=== PATIENT | female | born 1940 | race Caucasian/White ===

== ENCOUNTER 2020-05-27 18:10 | Inpatient (IN) | payer MEDICARE, SELFPAY ==
[2020-05-27] VITALS (8 sets, daily range): BP systolic 120–180; BP diastolic 56–77; PULSE 63–80; RESP 9–20; TEMP 36.8–39.1; O2SAT 93–97; BMI 23.4
--- NOTE | 2020-05-27 18:15 | ED_ITS ---
HPI - Neuro Symptoms/Deficit General Chief Complaint: Fever Stated Complaint: Increased Confusion Time Seen by Provider: 05/27/20 18:13 Source: patient and EMS Mode of arrival: EMS Limitations: altered mental status History of Present Illness HPI Narrative: Difficult to obtain history from the patient. It was reported by EMS that patient was brought to the emergency department for confusion and shortness of breath. Apparently the patient has had some shortness of breath for the past couple days however has become more confused over the past 4 hours. Unsure the patient's baseline is. Family is not at bedside for discussion. It was also reported that the patient had a known exposure to COVID-19. Unsure w hen this occurred. Patient states that she is from out of state and traveling through the area. Patient reported to me that she feels ?fine? she denies any chest pain or shortness of breath. Does note that her [id number] was positive for COVID-19. Patient states she does not know why she is here in the ER. Related Data Allergies Allergy/AdvReac Type Severity Reaction Status Date / Time Sulfa (Sulfonamide Allergy Verified 05/27/20 18:36 Antibiotics) Review of Systems Constitutional Constitutional: Denies fever(s) Cardiovascular Cardiovascular: Denies chest pain and Denies dyspnea Respiratory Respiratory: Denies cough and Denies dyspnea Gastrointestinal Gastrointestinal: Denies abdominal pain, Denies nausea and Denies vomiting Genitourinary Genitourinary: Denies dysuria Genitourinary: Denies dysuria Musculoskeletal Musculoskeletal: Denies arthralgias and Denies myalgias Integumentary/Breasts Skin/Breast: Denies lesions and Denies rash Neurologic Neurologic: Reports behavioral changes (This is per the family by report) and Reports confusion (Per report from the family) Comments: Patient denies any other neurologic symptoms Psychiatric Psychiatric: Denies anxiety, Reports behavioral changes (This is per the family by report) and Reports confusion (Per report from the family) Hematologic/Lymphatic Comments: On anticoagulation per the family Allergic/Immunologic Allergic/Immunologic: Denies urticaria Patient History Medical History Medical history unknown (Acute) Surgical History History of fusion of cervical spine (Acute) History of left mastectomy (Acute) Social History household members: spouse Smoking Status: Never smoker alcohol intake: never Exam Initial Vital Signs Initial Vital Signs: Vital Signs Temperature 102.4 F H 05/27/20 18:21 Pulse Rate 74 05/27/20 18:21 Respiratory Rate 18 05/27/20 18:21 Blood Pressure 180/77 H 05/27/20 18:21 Pulse Oximetry 95 05/27/20 18:21 Const General: comfortable and well developed Limitations: altered mental status HENMT Head: normal to inspection and normocephalic Nose: external nose normal Face and sinus: normal facial exam Eyes Pupils: PERRL Resp Effort & Inspection: normal respiratory effort Auscultation: clear to auscultation bilaterally Cardio Rate: regular rate Rhythm: regular rhythm GI Inspection: non-distended Palpation: No firm and No tender Skin Lesions: no lesions Rashes: no rashes Neuro General: patient alert and patient awake Cranial Nerves: CN's II-XI intact bilaterally Cognition: abnormal cognition Speech: speech normal Motor: muscle tone normal throughout Sensory Exam: no sensory deficits noted Coordination: [id number] test normal Extrem General: normal to inspection and capillary refill normal Psych Appearance: grossly normal and well kempt Scores GCS [place] coma scale eye opening: Spontaneous [place] coma scale verbal response: Confused [place] coma scale motor response: Obey commands [place] coma scale total score: 14 NIH Stroke Scale Level of Conciousness: Alert, keenly responsive Ask month/age: Answers both questions correctly. Open/close eyes, close hand: Performs both tasks correctly Best gaze horizontal: Normal Visual lima: No visual loss Facial palsy: Normal symetrical movement Left arm drift: No drift for full 10 sec Right arm drift: No drift for full 10 sec Left leg drift: No drift for full 10 sec Right leg drift: No drift for full 10 sec Limb ataxia: Absent Sensory on face/arms/legs: Normal, no sensory loss Best language: No aphasia, normal Dysarthria: Normal Extinction or inattention: No abnormality Total NIH Stroke scale score: 0 Course Orders Ordered: ED Orders 05/27/20 18:29 CT head/brain wo con Stat 05/27/20 18:30 Consult After Hours PICC Line RN Stat EKG-12 Lead Stat 05/27/20 18:31 XR chest 1V Stat 05/27/20 19:08 Ammonia (NH3) Stat Comprehensive Metabolic Panel Stat Ethanol (ETOH) Stat Lipase Stat Procalcitonin Stat Troponin & CK Cardiac Panel Stat 05/27/20 20:20 Complete Blood Count AUTO DIFF Stat Lactate (Lactic Acid) Stat Partial Thromboplastin Time Stat Prothrombin Time INR Stat 05/27/20 20:25 Blood Culture Stat 05/27/20 21:20 Urinalysis and Microscopic Stat Albuterol (Ventolin Hfa (Vent/Covid R/O)) 2 puff INH RTQ4HR PRN PRN Reason: Shortness Of Breath Apixaban (Eliquis) 5 mg PO BID [facility] Potassium Chloride 40 meq/ (Sodium Chloride) 520 mls @ 130 mls/hr IV NOW ONE Stop: 05/28/20 06:29 Last Admin: 05/28/20 03:05 Dose: 130 mls/hr Documented by: SUDEEP Cosigned by: ALDA Naloxone HCl (Narcan) 0.2 mg IV Q2MIN PRN PRN Reason: Opiate Reversal Pantoprazole Sodium (Protonix) 40 mg IV DAILY [facility] Promethazine HCl (Phenadoz) 12.5 mg NM Q6HR PRN PRN Reason: Nausea And Vomiting Sodium Chloride (Normal Saline 0.9% Flush) 10 ml IV PRN PRN PRN Reason: Flush Sodium Chloride (Normal Saline 0.9% Flush) 10 ml IV BID [facility] Discontinued Medications Acetaminophen (Tylenol) 650 mg PO NOW ONE Stop: 05/27/20 18:33 Last Admin: 05/27/20 19:47 Dose: Not Given Documented by: DAYAMI Acetaminophen (Tylenol) 650 mg NM NOW ONE Stop: 05/27/20 18:53 Last Admin: 05/27/20 19:26 Dose: 650 mg Documented by: FAUSTINO Dexamethasone (Decadron) 6 mg IV DAILY [facility] Last Admin: 05/28/20 00:54 Dose: Not Given Documented by: SUDEEP Sodium Chloride (Normal Saline 0.9%) 1,000 mls @ 125 mls/hr IV CONT [facility] Last Admin: 05/27/20 23:20 Dose: 125 mls/hr Documented by: Infusion: 05/27/20 23:20 Dose: 125 mls/hr Documented by: Admin: 05/27/20 18:48 Dose: 125 mls/hr Documented by: FAUSTINO Levofloxacin (Levaquin) 750 mg in 150 mls @ 100 mls/hr IV NOW ONE Stop: 05/27/20 21:21 Last Infusion: 05/27/20 21:32 Dose: 0 mls/hr Documented by: Admin: 05/27/20 20:02 Dose: 100 mls/hr Documented by: MERVIN Azithromycin 500 mg/ Dextrose 250 mls @ 250 mls/hr IV NOW ONE Stop: 05/27/20 21:59 Last Admin: 05/27/20 23:16 Dose: 250 mls/hr Documented by: SUDEEP Sodium Chloride (Normal Saline 0.9%) 1,000 mls @ 100 mls/hr IV CONT [facility] Last Admin: 05/27/20 23:30 Dose: 100 mls/hr Documented by: SUDEEP Levofloxacin (Levaquin) 750 mg in 150 mls @ 100 mls/hr IV Q48H [facility] Azithromycin 500 mg/ Dextrose 250 mls @ 250 mls/hr IV Q24H [facility] Stop: 05/29/20 23:01 Vital Signs Vital signs: Vital Signs - 8 hr 05/27/20 19:30 05/27/20 20:00 05/27/20 20:30 Temperature Pulse Rate 75 75 80 Respiratory Rate 9 L 14 20 Blood Pressure 171/72 H 159/70 H 153/70 H Pulse Oximetry 94 93 93 05/27/20 20:55 Temperature 101.3 F H Pulse Rate Respiratory Rate Blood Pressure Pulse Oximetry MDM - Neuro Symptoms/Deficit Lab Data Attestation: I reviewed the patient's lab results. Result diagrams: 05/27/20 20:20 05/27/20 19:08 Labs: Lab Results 05/27/20 05/27/20 05/27/20 Range/Units 18:45 18:52 19:08 WBC (4.5-11.0) X10^3/uL RBC (4.0-5.2) X10^6/uL Hgb (12.0-16.0) g/dL Hct (36-46) % MCV (80-100) fL MCH (26-34) PG MCHC (30-36) % RDW (11.6-14.8) % Plt Count (150-400) X10^3/uL Neut % (Auto) (50-75) % Lymph % (Auto) (25-40) % Ness % (Auto) (3-14) % Eos % (Auto) (2-4) % Baso % (Auto) (0-2) % Neut # (Auto) (4765-1243) /uL Lymph # (Auto) (0856-2886) /uL Ness # (Auto) (0-900) /uL Eos # (Auto) (0-450) /uL Baso # (Auto) (0-100) /uL PT (10.1-12.7) SECONDS INR (0.9-1.3) APTT (26.4-36.2) SECONDS Sodium 133 L (137-145) mmol/L Potassium 3.5 (3.4-5.1) mmol/L Chloride 98 (98-107) mmol/L Carbon Dioxide 27 (22-32) mmol/L BUN 21 H (7-17) mg/dL Creatinine 1.36 H (0.52-1.04) mg/dL Estimated GFR 37.7 L (>60) mL/min BUN/Creatinine Ratio 15.4 (6-22) Glucose 95 (80-110) mg/dL Lactate (0.7-2.1) mmol/L Calcium 8.2 L (8.4-10.2) mg/dL Magnesium (1.6-2.3) mg/dL Total Bilirubin 0.9 (0.2-1.3) mg/dL AST 326 H (14-36) IU/L ALT 387 H (<35) IU/L Alkaline Phosphatase 121 (38-126) U/L Ammonia (9-30) umol/L Total Creatine Kinase 838 H (30-135) U/L CK-MB (CK-2) 4.29 H (<2.37) ng/mL CK-MB (CK-2) Rel Index 0.5 L (1.5-5.0) % Troponin I 0.069 H (0.01-0.034) ng/mL Total Protein 6.4 (6.3-8.2) g/dL Albumin 3.7 (3.5-5.0) g/dL Globulin 2.7 (1.7-4.1) g/dL Albumin/Globulin Ratio 1.4 (1.0-2.8) Lipase 102 (23-300) U/L Procalcitonin (<0.5) ng/mL Urine Color Urine Appearance Urine pH (4.5-8.0) Ur Specific [place] (1.000-1.035) Urine Protein (Negative) Urine Glucose (UA) (Negative) g/dL Urine Ketones (NEGATIVE) Urine Occult Blood (Negative) Urine Nitrate (Negative) Urine Bilirubin (NEGATIVE) Urine Urobilinogen (0.2) E.U./dL Ur Leukocyte Esterase (NEGATIVE) Urine RBC (0-5/HPF) Urine WBC (0-5/HPF) Ur Squamous Epith Cells (0-5/HPF) Amorphous Sediment Urine Bacteria (None) Ur Culture Indicated? Ethyl Alcohol < 10 ( - 10) mg/dL COVID-19 PCR Positive H Cancelled (Negative) 05/27/20 05/27/20 05/27/20 Range/Units 19:08 19:08 20:20 WBC 5.0 (4.5-11.0) X10^3/uL RBC 3.95 L (4.0-5.2) X10^6/uL Hgb 12.6 (12.0-16.0) g/dL Hct 37.3 (36-46) % MCV 94.5 (80-100) fL MCH 32.0 (26-34) PG MCHC 33.9 (30-36) % RDW 14.8 (11.6-14.8) % Plt Count 102 L (150-400) X10^3/uL Neut % (Auto) 77.6 H (50-75) % Lymph % (Auto) 14.6 L (25-40) % Ness % (Auto) 7.1 (3-14) % Eos % (Auto) 0.1 L (2-4) % Baso % (Auto) 0.6 (0-2) % Neut # (Auto) 3900 (7862-6087) /uL Lymph # (Auto) 700 L (8656-9173) /uL Ness # (Auto) 400 (0-900) /uL Eos # (Auto) 0 (0-450) /uL Baso # (Auto) 0 (0-100) /uL PT (10.1-12.7) SECONDS INR (0.9-1.3) APTT (26.4-36.2) SECONDS Sodium (137-145) mmol/L Potassium (3.4-5.1) mmol/L Chloride (98-107) mmol/L Carbon Dioxide (22-32) mmol/L BUN (7-17) mg/dL Creatinine (0.52-1.04) mg/dL Estimated GFR (>60) mL/min BUN/Creatinine Ratio (6-22) Glucose (80-110) mg/dL Lactate (0.7-2.1) mmol/L Calcium (8.4-10.2) mg/dL Magnesium (1.6-2.3) mg/dL Total Bilirubin (0.2-1.3) mg/dL AST (14-36) IU/L ALT (<35) IU/L Alkaline Phosphatase (38-126) U/L Ammonia < 9 L (9-30) umol/L Total Creatine Kinase (30-135) U/L CK-MB (CK-2) (<2.37) ng/mL CK-MB (CK-2) Rel Index (1.5-5.0) % Troponin I (0.01-0.034) ng/mL Total Protein (6.3-8.2) g/dL Albumin (3.5-5.0) g/dL Globulin (1.7-4.1) g/dL Albumin/Globulin Ratio (1.0-2.8) Lipase (23-300) U/L Procalcitonin 0.42 (<0.5) ng/mL Urine Color Urine Appearance Urine pH (4.5-8.0) Ur Specific [place] (1.000-1.035) Urine Protein (Negative) Urine Glucose (UA) (Negative) g/dL Urine Ketones (NEGATIVE) Urine Occult Blood (Negative) Urine Nitrate (Negative) Urine Bilirubin (NEGATIVE) Urine Urobilinogen (0.2) E.U./dL Ur Leukocyte Esterase (NEGATIVE) Urine RBC (0-5/HPF) Urine WBC (0-5/HPF) Ur Squamous Epith Cells (0-5/HPF) Amorphous Sediment Urine Bacteria (None) Ur Culture Indicated? Ethyl Alcohol ( - 10) mg/dL COVID-19 PCR (Negative) 05/27/20 05/27/20 05/27/20 Range/Units 20:20 20:20 20:20 WBC (4.5-11.0) X10^3/uL RBC (4.0-5.2) X10^6/uL Hgb (12.0-16.0) g/dL Hct (36-46) % MCV (80-100) fL MCH (26-34) PG MCHC (30-36) % RDW (11.6-14.8) % Plt Count (150-400) X10^3/uL Neut % (Auto) (50-75) % Lymph % (Auto) (25-40) % Ness % (Auto) (3-14) % Eos % (Auto) (2-4) % Baso % (Auto) (0-2) % Neut # (Auto) (5210-5422) /uL Lymph # (Auto) (9019-2585) /uL Ness # (Auto) (0-900) /uL Eos # (Auto) (0-450) /uL Baso # (Auto) (0-100) /uL PT 17.4 H (10.1-12.7) SECONDS INR 1.5 H (0.9-1.3) APTT 31 (26.4-36.2) SECONDS Sodium (137-145) mmol/L Potassium (3.4-5.1) mmol/L Chloride (98-107) mmol/L Carbon Dioxide (22-32) mmol/L BUN (7-17) mg/dL Creatinine (0.52-1.04) mg/dL Estimated GFR (>60) mL/min BUN/Creatinine Ratio (6-22) Glucose (80-110) mg/dL Lactate 1.2 (0.7-2.1) mmol/L Calcium (8.4-10.2) mg/dL Magnesium 2.1 (1.6-2.3) mg/dL Total Bilirubin (0.2-1.3) mg/dL AST (14-36) IU/L ALT (<35) IU/L Alkaline Phosphatase (38-126) U/L Ammonia (9-30) umol/L Total Creatine Kinase (30-135) U/L CK-MB (CK-2) (<2.37) ng/mL CK-MB (CK-2) Rel Index (1.5-5.0) % Troponin I (0.01-0.034) ng/mL Total Protein (6.3-8.2) g/dL Albumin (3.5-5.0) g/dL Globulin (1.7-4.1) g/dL Albumin/Globulin Ratio (1.0-2.8) Lipase (23-300) U/L Procalcitonin (<0.5) ng/mL Urine Color Urine Appearance Urine pH (4.5-8.0) Ur Specific [place] (1.000-1.035) Urine Protein (Negative) Urine Glucose (UA) (Negative) g/dL Urine Ketones (NEGATIVE) Urine Occult Blood (Negative) Urine Nitrate (Negative) Urine Bilirubin (NEGATIVE) Urine Urobilinogen (0.2) E.U./dL Ur Leukocyte Esterase (NEGATIVE) Urine RBC (0-5/HPF) Urine WBC (0-5/HPF) Ur Squamous Epith Cells (0-5/HPF) Amorphous Sediment Urine Bacteria (None) Ur Culture Indicated? Ethyl Alcohol ( - 10) mg/dL COVID-19 PCR (Negative) 05/27/20 Range/Units 21:20 WBC (4.5-11.0) X10^3/uL RBC (4.0-5.2) X10^6/uL Hgb (12.0-16.0) g/dL Hct (36-46) % MCV (80-100) fL MCH (26-34) PG MCHC (30-36) % RDW (11.6-14.8) % Plt Count (150-400) X10^3/uL Neut % (Auto) (50-75) % Lymph % (Auto) (25-40) % Ness % (Auto) (3-14) % Eos % (Auto) (2-4) % Baso % (Auto) (0-2) % Neut # (Auto) (6483-3779) /uL Lymph # (Auto) (6367-3465) /uL Ness # (Auto) (0-900) /uL Eos # (Auto) (0-450) /uL Baso # (Auto) (0-100) /uL PT (10.1-12.7) SECONDS INR (0.9-1.3) APTT (26.4-36.2) SECONDS Sodium (137-145) mmol/L Potassium (3.4-5.1) mmol/L Chloride (98-107) mmol/L Carbon Dioxide (22-32) mmol/L BUN (7-17) mg/dL Creatinine (0.52-1.04) mg/dL Estimated GFR (>60) mL/min BUN/Creatinine Ratio (6-22) Glucose (80-110) mg/dL Lactate (0.7-2.1) mmol/L Calcium (8.4-10.2) mg/dL Magnesium (1.6-2.3) mg/dL Total Bilirubin (0.2-1.3) mg/dL AST (14-36) IU/L ALT (<35) IU/L Alkaline Phosphatase (38-126) U/L Ammonia (9-30) umol/L Total Creatine Kinase (30-135) U/L CK-MB (CK-2) (<2.37) ng/mL CK-MB (CK-2) Rel Index (1.5-5.0) % Troponin I (0.01-0.034) ng/mL Total Protein (6.3-8.2) g/dL Albumin (3.5-5.0) g/dL Globulin (1.7-4.1) g/dL Albumin/Globulin Ratio (1.0-2.8) Lipase (23-300) U/L Procalcitonin (<0.5) ng/mL Urine Color Yellow Urine Appearance Cloudy Urine pH 6.0 (4.5-8.0) Ur Specific [place] 1.020 (1.000-1.035) Urine Protein 2+ H (Negative) Urine Glucose (UA) Negative (Negative) g/dL Urine Ketones Negative (NEGATIVE) Urine Occult Blood 3+ H (Negative) Urine Nitrate Negative (Negative) Urine Bilirubin Negative (NEGATIVE) Urine Urobilinogen 0.2 (0.2) E.U./dL Ur Leukocyte Esterase Negative (NEGATIVE) Urine RBC None seen (0-5/HPF) Urine WBC 1-5/hpf (0-5/HPF) Ur Squamous Epith Cells 1-5 /hpf (0-5/HPF) Amorphous Sediment 2+ Urine Bacteria Few (2-10) H (None) Ur Culture Indicated? Cult not indicated Ethyl Alcohol ( - 10) mg/dL COVID-19 PCR (Negative) Imaging Data CT scan - head: Radiologist's Impression: [address] [address] [address] Scan Report Signed Patient: Anaid Law#: [id number] : 2Acct:[id number] Age/Sex: 79 / FDate of Service: 05/27/20 Loc: ED Accession Number: [id number] Procedure: CT head/brain wo con Ordering Provider: Low Price D.O. PROCEDURE: CT HEAD/BRAIN WO CON INDICATIONS: AMS TECHNIQUE: Noncontrast 4.5 mm thick angled axial sections acquired from the foramen magnum to the vertex, with coronal and sagittal reformats. For radiation dose reduction, the following was used: automated exposure control, adjustment of mA and/or kV according to patient size. COMPARISON: None. FINDINGS: Image quality: Excellent. CSF spaces: Basal cisterns are patent. No extra-axial fluid collections. The ventricles are symmetric in size and shape. Brain: No intracranial bleeds or masses. There is cerebral volume loss for age, with resultant ventricular and sulcal prominence. There are periventricular and deep white matter chronic small vessel ischemic changes. There is intracranial internal carotid artery atherosclerosis. Skull and face: Calvarium and visualized facial bones appear intact, without suspicious lesions. Left sphenoid and bilateral ethmoid sinus disease. IMPRESSION: No acute intracranial process. Dictated by: Reinier Vásquez M.D. on 05/27/2020 at 19:31 Approved by: Reinier Vásquez M.D. on 05/27/2020 at 19:33 Chest x-ray: Radiologist's Impression: [address] [address] XRay Report Signed Patient: Anaid Law#: [id number] : 2Acct:[id number] Age/Sex: 79 / FDate of Service: 05/27/20 Loc: ED Accession Number: [id number] Procedure: XR chest 1V Ordering Provider: Low Price D.O. PROCEDURE: XR CHEST 1V INDICATIONS: evl for pneumonia TECHNIQUE: One view of the chest was acquired. COMPARISON: None. FINDINGS: Surgical changes and devices: Surgical clip projects in the left axilla. Partially visualized cervical spinal fixation hardware Lungs and pleura: Left upper lobe consolidative and groundglass opacities. No pleural effusions or pneumothorax. Mediastinum: Mediastinal contours appear normal. Heart size is normal. Bones and chest wall: No suspicious bony lesions. Overlying soft tissues appear unremarkable. IMPRESSION: Left upper lobe consolidative and groundglass opacities, which could reflect acute pneumonia although technically age-indeterminate. Recommend continued short interval radiographic surveillance to document complete resolution after treatment to exclude neoplasm. Dictated by: Reinier Vásquez M.D. on 05/27/2020 at 19:37 Approved by: Reinier Vásquez M.D. on 05/27/2020 at 19:39 ECG Data Attestation: I personally reviewed and interpreted this ECG as follows: Prior ECG tracings: not available for review Interpretation: Atrial flutter Ventricular rate is [address] T wave changes MDM Narrative Medical decision making narrative: HPI was provided by EMS to receive the infor mation from the patient's family. They are not available here in the emergency department to discuss. This made it difficult to find out exactly what has been going on her how long the symptoms have been lasting or whether not the patient is at her baseline. She was alert to person place and time. She knew her date. She knew the name of her . She did not know why she was here in the ER. She did not remember that she came by EMS. NIH score was 0 because patient knew the orientation questions within that scoring system. Patient's chest x-ray is concerning for pneumonia. She was given Levaquin. Patient's EKG appears to be atrial flutter. Most likely this is why she is on the Eliquis. Her head CT is unremarkable. No other source of infection except for lungs. Patient was COVID-19 positive. Patient was febrile. Patient was unable to swallow the Tylenol upon arrival. Nursing states that they were concerned that she potentially could aspirate. I feel given the altered mental status, the lack of the definitive history secondary to family not being at bedside, the inability to swallow tablets that patient should be admitted to the hospital. Discussed the case with ALO Nunez the [facility] hospital provider who will admit for further evaluation and treatment. Discharge Plan Departure Patient Disposition: Admitted As Inpatient Clinical Impression: Community acquired pneumonia Qualifiers: Laterality: left Lung location: upper lobe of lung Qualified Code(s): J18.9 - Pneumonia, unspecified organism Altered mental status Qualifiers: Altered mental status type: unspecified Qualified Code(s): R41.82 - Altered mental status, unspecified Discharge Date/Time: 05/27/20 23:00 Admit Date/Time: 05/27/20 22:16 Admit Provider: Jimbo Nunez
--- NOTE | 2020-05-27 18:29 | DI.CT.S_ITS ---
PROCEDURE: CT HEAD/BRAIN WO CON INDICATIONS: AMS TECHNIQUE: Noncontrast 4.5 mm thick angled axial sections acquired from the foramen magnum to the vertex, with coronal and sagittal reformats. For radiation dose reduction, the following was used: automated exposure control, adjustment of mA and/or kV according to patient size. COMPARISON: None. FINDINGS: Image quality: Excellent. CSF spaces: Basal cisterns are patent. No extra-axial fluid collections. The ventricles are symmetric in size and shape. Brain: No intracranial bleeds or masses. There is cerebral volume loss for age, with resultant ventricular and sulcal prominence. There are periventricular and deep white matter chronic small vessel ischemic changes. There is intracranial internal carotid artery atherosclerosis. Skull and face: Calvarium and visualized facial bones appear intact, without suspicious lesions. Left sphenoid and bilateral ethmoid sinus disease. IMPRESSION: No acute intracranial process. Dictated by: Reinier Vásquez M.D. on 05/27/2020 at 19:31 Approved by: Reinier Vásquez M.D. on 05/27/2020 at 19:33
--- NOTE | 2020-05-27 18:31 | DI.RAD.S_ITS ---
PROCEDURE: XR CHEST 1V INDICATIONS: evl for pneumonia TECHNIQUE: One view of the chest was acquired. COMPARISON: None. FINDINGS: Surgical changes and devices: Surgical clip projects in the left axilla. Partially visualized cervical spinal fixation hardware Lungs and pleura: Left upper lobe consolidative and groundglass opacities. No pleural effusions or pneumothorax. Mediastinum: Mediastinal contours appear normal. Heart size is normal. Bones and chest wall: No suspicious bony lesions. Overlying soft tissues appear unremarkable. IMPRESSION: Left upper lobe consolidative and groundglass opacities, which could reflect acute pneumonia although technically age-indeterminate. Recommend continued short interval radiographic surveillance to document complete resolution after treatment to exclude neoplasm. Dictated by: Reinier Vásquez M.D. on 05/27/2020 at 19:37 Approved by: Reinier Vásquez M.D. on 05/27/2020 at 19:39
[2020-05-27] MEDS: SODIUM CHLORIDE 0.9% 1,000 ML 125 ML IV ×2 (18:48→23:20)
[2020-05-27] MEDS: ACETAMINOPHEN 650 MG SUPP PR (19:26)
[2020-05-27 19:30] LABS: Ammonia (NH3) < 9 umol/L (9-30)
[2020-05-27 19:32] LABS: Alanine Aminotransferase 387 IU/L (<35); Albumin 3.7 g/dL (3.5-5.0); Albumin Globulin Ratio 1.4 (1.0-2.8); Alkaline Phosphatase 121 U/L (38-126); Aspartate Aminotransferase 326 IU/L (14-36); BUN Creatinine Ratio 15.4 (6-22); Bilirubin Total 0.9 mg/dL (0.2-1.3); Blood Urea Nitrogen 21 mg/dL (7-17); Calcium 8.2 mg/dL (8.4-10.2); Carbon Dioxide 27 mmol/L (22-32); Chloride 98 mmol/L (98-107); Creatine Kinase 838 U/L (30-135); Estimated Glomerular Filt Rate 37.7 mL/min (>60); Ethanol (ETOH) < 10 mg/dL; Globulin 2.7 g/dL (1.7-4.1); Glucose 95 mg/dL (80-110); HEMOLYSIS < 15 (0-50); Lipase 102 U/L (23-300); Potassium 3.5 mmol/L (3.4-5.1); Sodium 133 mmol/L (137-145); Total Protein 6.4 g/dL (6.3-8.2)
[2020-05-27 19:43] LABS: Troponin I 0.069 ng/mL (0.01-0.034)
[2020-05-27 19:47] LABS: CKMB % Relative Index 0.5 % (1.5-5.0); Creatine Kinase MB 4.29 ng/mL (<2.37)
[2020-05-27 19:48] LABS: Procalcitonin 0.42 ng/mL (<0.5)
[2020-05-27] MEDS: levoFLOXacin 750 MG/150 ML PIGGYBACK 100 MG IV (20:02)
[2020-05-27 20:33] LABS: Add Manual Diff / Slide Review NO; Basophils Absolute Auto 0 /uL (0-100); Basophils Percent Auto 0.6 % (0-2); Eosinophils Absolute Auto 0 /uL (0-450); Eosinophils Percent Auto 0.1 % (2-4); Hematocrit 37.3 % (36-46); Hemoglobin 12.6 g/dL (12.0-16.0); Lymphocytes Absolute Auto 700 /uL (1100-4500); Lymphocytes Percent Auto 14.6 % (25-40); Mean Corpuscular HGB Conc 33.9 % (30-36); Mean Corpuscular Volume 94.5 fL (80-100); Monocytes Absolute Auto 400 /uL (0-900); Monocytes Percent Auto 7.1 % (3-14); Neutrophils Absolute Auto 3900 /uL (1500-7000); Neutrophils Percent Auto 77.6 % (50-75); Platelet Count 102 X10^3/uL (150-400); Red Blood Cell Count 3.95 X10^6/uL (4.0-5.2); Red Cell Distribution Width 14.8 % (11.6-14.8)
[2020-05-27 20:44] LABS: INR 1.5 (0.9-1.3); Prothrombin Time 17.4 SECONDS (10.1-12.7)
[2020-05-27 20:47] LABS: Lactate (Lactic Acid) 1.2 mmol/L (0.7-2.1); PTT Partial Thromboplastin Tim 31 SECONDS (26.4-36.2)
[2020-05-27 21:33] LABS: RBC Urine None Seen (0-5/HPF)
[2020-05-27 21:34] LABS: Bilirubin Urine UA NEGATIVE (NEGATIVE); Color Urine UA YELLOW; Glucose Urine UA NEGATIVE (Negative); Ketones Urine UA NEGATIVE (NEGATIVE); Leukocyte Esterase Urine UA NEGATIVE (NEGATIVE); Nitrite Urine UA NEGATIVE (Negative); Occult Blood Urine UA 3+ (Negative); Protein Urine UA 2+ (Negative); Urobilinogen Urine UA 0.2 E.U./dL (0.2)
[2020-05-27 21:35] LABS: Appearance Urine UA Cloudy
--- NOTE | 2020-05-27 21:40 | PC.NURSE ---
Marty of [facility] in room to place midline.
[2020-05-27 21:45] LABS: Amorphous Sediment Urine 2+; Bacteria Urine Few (2-10); Squamous Epithelial Cell Urine 1-5 /HPF (0-5/HPF); WBC Urine 1-5/HPF (0-5/HPF)
[2020-05-27 21:46] LABS: Culture Indicated Urine Cult Not Indicated
--- NOTE | 2020-05-27 22:00 | PC.NURSE ---
PT Mikel, called to update with no answer.
[2020-05-27 23:05] LABS: Magnesium 2.1 mg/dL (1.6-2.3)
[2020-05-27] MEDS: AZITHROMYCIN 500 MG in DEXTROSE 5% IN WATER 250 ML IV (23:16)
[2020-05-27] MEDS: SODIUM CHLORIDE 0.9% 1,000 ML 100 ML IV (23:30)
[2020-05-28] VITALS (10 sets, daily range): BP systolic 123–187; BP diastolic 64–79; PULSE 54–77; RESP 20–34; TEMP 36.5–37.3; O2SAT 93–99; BMI 23.4
[2020-05-28 00:07] LABS: Troponin I 0.082 ng/mL (0.01-0.034)
--- NOTE | 2020-05-28 00:19 | PM.HP.1 ---
History of Present Illness History of Present Illness Date Patient Seen: 05/27/20 Time Patient Seen: 23:41 Chief complaint: Increased Confusion Narrative: Ms. Nelsy Law this 79-year-old female with an unknown past medical history who presents to the emergency room via EMS being brought in for increased weakness for 2 days and increasing confusion for 4 hours. Patient oddly enough can not state person place and date but cannot recall events including count she at the hospital. The patient's is not available in person or by phone. Reportedly the patient was traveling from [place] via however date of departure is unknown. It is known she had been in contact with her [id number] who was COVID-19 positive. The patient subsequently developed progressive weakness and increasing confusion with associated cough, fevers and chills. The patient denies complaints of headaches or dizziness, nasal congestion or sore throat. She reports no complaints of chest pain or palpitations. She does acknowledge a history of heart problems but is unable to specify what they are. The patient has exertional dyspnea and a dry nonproductive cough. She denies complaints of abdominal pain, nausea or vomiting. She reports no diarrhea or constipation and reports no urinary symptoms. Patient reports no balance problems or falls. In the ER the patient's identified to be anticoagulated on Eliquis again for unclear reason. Upon arrival to the ER the patient is febrile with a temperature of 102.4?, heart rate of 74, blood pressure 180/77, and respirations of 18 saturating 95% on room air. A chest x-ray is obtained finding left upper lobe consolidative ground-glass opacities, heart size is normal with no effusions. A head CT is obtained which finds no acute pathology, cerebral volume loss for age, periventricular and deep white matter chronic ischemic small-vessel disease. Twelve lead EKG identifies atrial flutter with a 4-1 conduction without ectopy, inverted T-waves in V3 through 6. On laboratory analysis the patient has a white count of 5.0, hemoglobin of 12.6, hematocrit of 37.3 and platelets of 102. On coagulation she has a PT of 17.4, INR of 1.5 and a PTT of 31. She has a sodium 133, potassium 3.5, BUN of 21 and a creatinine of 1.36. She has an EGFR 37.7. On liver functions she has a total bilirubin of 0.9, AST of 326, ALT of 387, alkaline phosphatase of 121. Her ammonia is less than 9 and she has an albumin of 3.7. Lactic acid is 1.2 with procalcitonin 0.42. Total CK is elevated at 838 with CK-MB of 4.29 and in index of 0.5. She has a troponin of 0.069. In the ER the patient was administered Tylenol but was unable to swallow Tylenol and was administered rectally due to concern for aspiration. She is given normal saline 125 cc/hour and has had midline placed. Blood cultures are drawn and she was given Levaquin 750 mg azithromycin 500 mg. The patient is admitted to the hospital for community-acquired pneumonia with altered mental status with known COVID-19 exposure. Patient History Medical History Medical history unknown (Acute) Surgical History History of fusion of cervical spine (Acute) History of left mastectomy (Acute) Family & Social History Family history unavailable: No (The patient is able to provide family or social history.) Safety & Behavioral: Feels Safe in Current Yes Environment Been Physically Hurt or No Threatened By a Person Tobacco & Substance use: Smoking Status Former smoker alcohol intake frequency 0-2 drinks per day Substance Use Type does not use Meds Home Medications and Allergies Allergies Allergy/AdvReac Type Severity Reaction Status Date / Time Sulfa (Sulfonamide Allergy Verified 05/27/20 18:36 Antibiotics) Review of Systems Review of Systems Narrative: The quality of the patient's subjective information is questionable due to altered mental status. ROS: Yes All systems reviewed with the patient and are negative except as otherwise documented Exam Vital Signs (past 8 hours): - 05/27/20 18:21 05/27/20 19:30 05/27/20 20:00 Temperature 102.4 F H Pulse Rate 74 75 75 Respiratory Rate 18 9 L 14 Blood Pressure 180/77 H 171/72 H 159/70 H Pulse Oximetry 95 94 93 05/27/20 20:30 05/27/20 20:55 05/27/20 22:20 Temperature 101.3 F H Pulse Rate 80 66 Respiratory Rate 20 16 Blood Pressure 153/70 H 120/56 L Pulse Oximetry 93 97 07/02/20 22:23 Temperature 99.2 F Pulse Rate Respiratory Rate Blood Pressure Pulse Oximetry Oxygen Delivery Method Room Air Narrative Exam Narrative: GENERAL APPEARANCE: well developed, well nourished, elderly female was interactive with impaired cognition and recall, in no acute distress. HEENT: Normocephalic, atraumatic, PERRLA, conjunctiva clear, sclera anicteric, EOMs intact without nystagmus, no sinus tenderness to percussion, no rhinorrhea, mucous membranes are moist and pink. NECK/THYROID: Preserved range of motion, no JVD, no carotid bruit, no thyromegaly, trachea midline. LYMPH NODES: no cervical or supraclavicular lymphadenopathy. SKIN: [place], warm and dry, no visible lesions, rashes, ulcerations or petechiae. HEART: regular rate and rhythm, S1-split S2, 1/6 systolic murmur mid left sternal border, brisk capillary refill, no pedal edema. LUNGS: Breath sounds with scattered wheezes pronounced with coughing,, no coarseness crackles, no cough present CHEST: Well-healed left mastectomy surgical scar, symmetrical movement, no accessory muscle use, good tidal volume. ABDOMEN: Soft, no distention, no abdominal tenderness, no guarding or peritoneal signs, no organomegaly, active bowel tones. BACK: Normal curvature, nontender to palpation, no CVA tenderness on percussion EXTREMITIES: moves all extremities, strength is 5/5 and symmetrical, slow stable gait NEUROLOGIC: AAO to person, place, and date, impaired memory and recall, no lateralizing symptoms, cranial nerves II-XII grossly intact, sensation intact to light touch, hearing grossly normal to speech. PSYCH: Good eye contact, mildly anxious, cooperative. Objective Labs Result Diagrams: 05/27/20 20:20 05/27/20 19:08 Labs: Laboratory Results - last 24 hr 05/27/20 05/27/20 05/27/20 18:45 18:52 19:08 WBC RBC Hgb Hct MCV MCH MCHC RDW Plt Count Neut % (Auto) Lymph % (Auto) [place] % (Auto) Eos % (Auto) Baso % (Auto) Neut # (Auto) Lymph # (Auto) [place] # (Auto) Eos # (Auto) Baso # (Auto) PT INR APTT Sodium 133 L Potassium 3.5 Chloride 98 Carbon Dioxide 27 BUN 21 H Creatinine 1.36 H Estimated GFR 37.7 L BUN/Creatinine Ratio 15.4 Glucose 95 Lactate Calcium 8.2 L Magnesium Total Bilirubin 0.9 AST 326 H ALT 387 H Alkaline Phosphatase 121 Ammonia Total Creatine Kinase 838 H CK-MB (CK-2) 4.29 H CK-MB (CK-2) Rel Index 0.5 L Troponin I 0.069 H Total Protein 6.4 Albumin 3.7 Globulin 2.7 Albumin/Globulin Ratio 1.4 Lipase 102 Procalcitonin Urine Color Urine Appearance Urine pH Ur Specific [place] Urine Protein Urine Glucose (UA) Urine Ketones Urine Occult Blood Urine Nitrate Urine Bilirubin Urine Urobilinogen Ur Leukocyte Esterase Urine RBC Urine WBC Ur Squamous Epith Cells Amorphous Sediment Urine Bacteria Ur Culture Indicated? Ethyl Alcohol < 10 COVID-19 PCR Positive H Cancelled 05/27/20 05/27/20 05/27/20 19:08 19:08 20:20 WBC 5.0 RBC 3.95 L Hgb 12.6 Hct 37.3 MCV 94.5 MCH 32.0 MCHC 33.9 RDW 14.8 Plt Count 102 L Neut % (Auto) 77.6 H Lymph % (Auto) 14.6 L [place] % (Auto) 7.1 Eos % (Auto) 0.1 L Baso % (Auto) 0.6 Neut # (Auto) 3900 Lymph # (Auto) 700 L [place] # (Auto) 400 Eos # (Auto) 0 Baso # (Auto) 0 PT INR APTT Sodium Potassium Chloride Carbon Dioxide BUN Creatinine Estimated GFR BUN/Creatinine Ratio Glucose Lactate Calcium Magnesium Total Bilirubin AST ALT Alkaline Phosphatase Ammonia < 9 L Total Creatine Kinase CK-MB (CK-2) CK-MB (CK-2) Rel Index Troponin I Total Protein Albumin Globulin Albumin/Globulin Ratio Lipase Procalcitonin 0.42 Urine Color Urine Appearance Urine pH Ur Specific [place] Urine Protein Urine Glucose (UA) Urine Ketones Urine Occult Blood Urine Nitrate Urine Bilirubin Urine Urobilinogen Ur Leukocyte Esterase Urine RBC Urine WBC Ur Squamous Epith Cells Amorphous Sediment Urine Bacteria Ur Culture Indicated? Ethyl Alcohol COVID-19 PCR 05/27/20 05/27/20 05/27/20 20:20 20:20 20:20 WBC RBC Hgb Hct MCV MCH MCHC RDW Plt Count Neut % (Auto) Lymph % (Auto) [place] % (Auto) Eos % (Auto) Baso % (Auto) Neut # (Auto) Lymph # (Auto) [place] # (Auto) Eos # (Auto) Baso # (Auto) PT 17.4 H INR 1.5 H APTT 31 Sodium Potassium Chloride Carbon Dioxide BUN Creatinine Estimated GFR BUN/Creatinine Ratio Glucose Lactate 1.2 Calcium Magnesium 2.1 Total Bilirubin AST ALT Alkaline Phosphatase Ammonia Total Creatine Kinase CK-MB (CK-2) CK-MB (CK-2) Rel Index Troponin I Total Protein Albumin Globulin Albumin/Globulin Ratio Lipase Procalcitonin Urine Color Urine Appearance Urine pH Ur Specific [place] Urine Protein Urine Glucose (UA) Urine Ketones Urine Occult Blood Urine Nitrate Urine Bilirubin Urine Urobilinogen Ur Leukocyte Esterase Urine RBC Urine WBC Ur Squamous Epith Cells Amorphous Sediment Urine Bacteria Ur Culture Indicated? Ethyl Alcohol COVID-19 PCR 05/27/20 05/27/20 21:20 23:30 WBC RBC Hgb Hct MCV MCH MCHC RDW Plt Count Neut % (Auto) Lymph % (Auto) [place] % (Auto) Eos % (Auto) Baso % (Auto) Neut # (Auto) Lymph # (Auto) [place] # (Auto) Eos # (Auto) Baso # (Auto) PT INR APTT Sodium Potassium Chloride Carbon Dioxide BUN Creatinine Estimated GFR BUN/Creatinine Ratio Glucose Lactate Calcium Magnesium Total Bilirubin AST ALT Alkaline Phosphatase Ammonia Total Creatine Kinase CK-MB (CK-2) CK-MB (CK-2) Rel Index Troponin I 0.082 H Total Protein Albumin Globulin Albumin/Globulin Ratio Lipase Procalcitonin Urine Color Yellow Urine Appearance Cloudy Urine pH 6.0 Ur Specific [place] 1.020 Urine Protein 2+ H Urine Glucose (UA) Negative Urine Ketones Negative Urine Occult Blood 3+ H Urine Nitrate Negative Urine Bilirubin Negative Urine Urobilinogen 0.2 Ur Leukocyte Esterase Negative Urine RBC None seen Urine WBC 1-5/hpf Ur Squamous Epith Cells 1-5 /hpf Amorphous Sediment 2+ Urine Bacteria Few (2-10) H Ur Culture Indicated? Cult not indicated Ethyl Alcohol COVID-19 PCR Assessment & Plan Assessment & Plan narrative: This is a 79-year-old female patient was traveling from [place] with her in to [facility]. Over the last 2 days the patient is reported to have had increasing weakness and confusion with associated cough fevers. Patient is found to have left upper lobe pneumonia with known COVID-19 exposure within the last week. 1. Left upper lobe pneumonia, covered 19 positive, present on admission, active -patient with known COVID-19 exposure within the last week, rapid COVID-19 testing is positive. -patient is maintaining adequate saturation at 94-95% without supplemental oxygen. Chest x-ray with a left upper lobe ground-glass consolidation. -white count is 5.0, BUN is 21 with a creatinine of 1 0.36, lactic acid is 1 2 with a procalcitonin 0.42. Elevated AST of 326 and ALT of 389. LDH is 822, CRP is 12.3. -COVID-GRAM Critical Illness Risk Score places the patient at high risk related to age, cardiac disease, history of cancer, elevated liver functions, elevated LDH, and ALT and renal failure. -current guidelines recommend: -limiting fluid to limit pulmonary injury. -Remdesivir when patient saturation drops below 94%. -Decadron 6 mg daily for 10 days is indicated 1 oxygen saturation dropped below 94%. -consult respiratory therapy to evaluate and treat. -albuterol MDI every 4 hours as needed. 2. Metabolic encephalopathy secondary to pneumonia above, present on admission, active -the patient has demonstrated increasing confusion over the last 2 days per family. -no other apparent etiology is found for confusional state, alcohol is less than 10, ammonia is 9. -head CT finds no acute pathology but notes cerebral volume loss for age and periventricular deep white matter chronic ischemic small-vessel disease. -in the ER the patient unable to swallow tablets and consider risk for aspiration. Ordered bedside swallow evaluation. -patient is NPO, requested speech therapy to consult and evaluate. -patient remains redirectable and cooperative, behaviorally stable. 3. Elevated troponin, probable type 2 VT, present on admission, active. -the patient denies complaints of chest pain however 12 lead EKG reveals atrial flutter 4 1 with inverted T-waves in V3 through V6 concerning for ischemia. No other EKG is available for comparison, will repeat 12 lead EKG in the morning. -total CK is elevated 838, CK-MB is 4.29 with an index % of 0.5. She has an elevated troponin at 0.069, recheck a troponin is further elevated at 0.082. The patient denies chest pain but is short of breath was likely revealed a to COVID-19 pneumonia above. Will recheck cardiac panel with morning labs. -obtain proBNP. 4. Atrial flutter, unknown duration or chronicity, present on admission, active. -12 lead EKG finds atrial flutter with a 4-1 conduction with a ventricular rate of 71, no ectopy, normal axis, inverted T-waves in V3 through V6. -the patient cannot related she has a history of atrial flutter but does relate a history of cardiac disease. -potassium is 3.5, ordered 40 mEq potassium K rider. Magnesium level is 2.1. -patient has been anticoagulated on Eliquis however doses unknown. -patient's is unable to be reached for does confirmation, order Eliquis 5 mg twice daily until dose could be confirmed. -patient remains hemodynamically stable. 5. Elevated creatinine, probable CKD possible DANUTA, present on admission, active -patient has a BUN of 21 and creatinine of 1.36. There is no prior values for comparison and the patient is unable to provide additional information. -urinalysis feels a pH of 1.020 with 2+ protein 3+ blood and few bacteria and negative for leukocyte esterase or nitrites or WBCs. BUN creatinine ratio is 15.4. EGFR is 37.7 and creatinine clearance is 31.83. -elevated creatinine does not appear to be pre renal, the patient does not appear clinically dehydrated, abnormal creatinine may be related to COVID-19 inflammatory process or chronic disease. Will order urine sodium. -no supplementary IV fluid per treatment guidelines for COVID-19. Will monitor renal function on chemistries. 6. Elevated transaminase, probably acute, present on admission, active. -bilirubin is normal at 0.9 and AST is elevated at 326 and ALT at 387 with a normal alkaline phosphatase at 121. Albumin is 3.7 and ammonia is less than 9. -this represents liver injury secondary to coronavirus infection. -will repeat complete metabolic panel in the morning. Isolation: Droplet, COVID-19 positive. VTE prophylaxis: Bilateral SCDs, anticoagulated on Eliquis IV fluid: Saline lock Diet: NPO until swallow evaluation. Code status: Due to patient's impaired cognition she will be FULL CODE until such time further status could be clarified. The patient's is not available in person or by phone to confirm and is surrogate decision maker. The patient is admitted to the hospital due to the severity of her illness and high risk for deterioration, adverse events and complications. She is admitted as an inpatient with expected length of stay to be greater than 2 midnights. COVID-19 COVID-19 status: Positive Result date/Date tested (Pos, Neg/Pending): 05/28/20
[2020-05-28 00:35] LABS: Lactate Dehydrogenase 822 U/L (313-618)
[2020-05-28 00:36] LABS: Bilirubin Direct 0.4 mg/dL (0.0-0.4)
[2020-05-28 00:56] LABS: C-Reactive Protein Quant 12.3 mg/dL (<1.0)
--- NOTE | 2020-05-28 01:38 | PC.ADMIT ---
. Admission Note: Pt arrived to unit 2300. Alert and oriented to self and situation. Confused at times and unable to recall hx. Sating on RA t 95%. Voiding to toilet without issues. Skin check done with David RN. Denies any pain at this time. SBA. No complaints of chest pain or SOB at this time The patient,Nelsy Law,79 y/o, was given written information regarding hospital policies, unit procedures and contact persons. Patient's smoking status: Never smoker. Vital Signs - 8 hr 05/27/20 18:21 05/27/20 19:30 05/27/20 20:00 Temperature 102.4 F H Pulse Rate 74 75 75 Respiratory Rate 18 9 L 14 Blood Pressure 180/77 H 171/72 H 159/70 H Pulse Oximetry 95 94 93 05/27/20 20:30 05/27/20 20:55 05/27/20 22:20 Temperature 101.3 F H Pulse Rate 80 66 Respiratory Rate 20 16 Blood Pressure 153/70 H 120/56 L Pulse Oximetry 93 97 05/27/20 22:23 05/27/20 23:00 Temperature 99.2 F 98.2 F Pulse Rate 63 Respiratory Rate 20 Blood Pressure 142/63 H Pulse Oximetry 95
--- NOTE | 2020-05-28 01:42 | PC.NURSE ---
Addendum entered by Krista Contreras R.N. 05/28/20 04:56: Notified Enrique RUVALCABA that patient now requiring O2. Orders received. Original Note: Pt desating occasionally to 86% while on RA and then back upto 95%. Placed on 2L O2 to maintain sats. Sats now at 95%. [facility]
[2020-05-28] MEDS: POTASSIUM CHLORIDE 40 MEQ in SODIUM CHLORIDE 0.9% 500 ML 130 ML IV (03:05)
[2020-05-28] MEDS: ALBUTEROL HFA 200 PUFF/18 GM INH (COVID POS/VENT PTS) INH (05:23)
[2020-05-28 05:41] LABS: Sodium Urine Random 28 mmol/L (30-90)
[2020-05-28 05:49] LABS: Add Manual Diff / Slide Review NO; Basophils Absolute Auto 0 /uL (0-100); Basophils Percent Auto 0.2 % (0-2); Eosinophils Absolute Auto 0 /uL (0-450); Eosinophils Percent Auto 0.2 % (2-4); Hematocrit 35.4 % (36-46); Lymphocytes Absolute Auto 700 /uL (1100-4500); Lymphocytes Percent Auto 15.5 % (25-40); Mean Corpuscular Hemoglobin 32.2 PG (26-34); Mean Corpuscular Volume 94.5 fL (80-100); Monocytes Absolute Auto 300 /uL (0-900); Monocytes Percent Auto 7.5 % (3-14); Neutrophils Absolute Auto 3300 /uL (1500-7000); Neutrophils Percent Auto 76.6 % (50-75); Platelet Count 98 X10^3/uL (150-400); Red Blood Cell Count 3.74 X10^6/uL (4.0-5.2); Red Cell Distribution Width 14.7 % (11.6-14.8); White Blood Cell Count 4.3 X10^3/uL (4.5-11.0)
[2020-05-28 06:01] LABS: D Dimer 461 ng/mL (<230)
[2020-05-28 06:06] LABS: COVID19 -Nasal RAPID POSITIVE (Negative)
[2020-05-28 06:10] LABS: INR 1.4 (0.9-1.3); Prothrombin Time 16.2 SECONDS (10.1-12.7)
[2020-05-28 06:11] LABS: NT-proBNP (BNP-Adult 18+) 514 pg/mL (<450)
[2020-05-28 06:13] LABS: PTT Partial Thromboplastin Tim 29 SECONDS (26.4-36.2)
[2020-05-28 06:16] LABS: Alanine Aminotransferase 299 IU/L (<35); Albumin Globulin Ratio 1.2 (1.0-2.8); Alkaline Phosphatase 91 U/L (38-126); Aspartate Aminotransferase 237 IU/L (14-36); BUN Creatinine Ratio 14.5 (6-22); Bilirubin Total 0.7 mg/dL (0.2-1.3); Blood Urea Nitrogen 19 mg/dL (7-17); Calcium 7.8 mg/dL (8.4-10.2); Carbon Dioxide 21 mmol/L (22-32); Chloride 107 mmol/L (98-107); Creatine Kinase 626 U/L (30-135); Estimated Glomerular Filt Rate 39.4 mL/min (>60); Globulin 2.6 g/dL (1.7-4.1); Glucose 87 mg/dL (80-110); HEMOLYSIS < 15 (0-50); Potassium 3.7 mmol/L (3.4-5.1); Sodium 135 mmol/L (137-145); Total Protein 5.6 g/dL (6.3-8.2)
[2020-05-28 06:27] LABS: Troponin I 0.061 ng/mL (0.01-0.034)
[2020-05-28 06:31] LABS: CKMB % Relative Index 0.7 % (1.5-5.0); Creatine Kinase MB 4.11 ng/mL (<2.37); Procalcitonin 0.42 ng/mL (<0.5)
[2020-05-28 06:44] LABS: Thyroid Stimulating Hormone 0.673 uIU/mL (0.47-4.68)
[2020-05-28] MEDS: APIXABAN 5 MG TABLET PO ×2 (08:08→20:47)
[2020-05-28] MEDS: SODIUM CHLORIDE 0.9% FLUSH 10 ML IV ×2 (08:08→20:48)
[2020-05-28] MEDS: DEXAMETHASONE 10 MG/ML VIAL 6 MG IV (08:08)
[2020-05-28] MEDS: PANTOPRAZOLE 40 MG VIAL IV (08:08)
[2020-05-28] MEDS: REMDESIVIR 1 EACH INJ (12:52)
--- NOTE | 2020-05-28 13:38 | PC.NURSE ---
Addendum entered by Reinier Bui R.N. 05/28/20 14:42: Called to Dr. Patrick. Reported pt continues with diarrhea. No new orders. Original Note: Pt AO x3 but forgetful and often asking repetitive questions. She is quite weak and experiences dyspnea on exertion evidenced by tachypnea (RR30s) and use of accessory muscles to breathe after getting up and walking to the bathroom. She is requiring 1PA with walking to the bathroom and gait is slow, mildly tremulous, but mostly steady. Her SPO2 has ranged from 93-99% on RA. She is also experiencing some diarrheal stools that are loose, watery, and light brown to yellow. Unable to obtain a sample that is not mixed with urine. Her appetite is poor but she is drinking fluids ok. Her BP has been elevated. Med rec was completed after receiving med list from pt's pharmacy. Updated Dr. Patrick ~ 1145 that med rec was complete and reported BP. Plan is for pt to go home when stable. Current treatment plan includes Remdesivir IV. Pt gave informed consent to receive medication after education/explanation with provider. Written education provided as well.
--- NOTE | 2020-05-28 14:23 | PM.PN.1 ---
Subjective Subjective Date Patient Seen: 05/28/20 Time Patient Seen: 14:23 Interval history: She is seen in her room in the intensive care unit today to follow-up her COVID-19 pneumonia, atrial fibrillation, hypertension, breast cancer and depression. She is in isolation for her hypoxia/coughing and is receiving dexamethasone. She will be started on Remdesivir. She remains mildly hypoxic dropping to the 80s at times on room air. The AST has dropped from 326 down to 237. The ALT has dropped from 387 to 299. The troponin eduardo to 0.079 and then dropped to 0.061. The procalcitonin has remained stable at 0.42. The white count is 4.3 with a hemoglobin of 12.0, and INR 1.4, a D-dimer 461, creatinine 1.31 and a CRP of 12.3. I updated her this morning. He will be getting his own covid testing soon. He is not having any symptoms but will still be asked to not come up to the [facility]. Exam Vital Signs (past 8 hours): - 05/28/20 07:00 05/28/20 11:15 05/28/20 12:30 Temperature 97.7 F 99.1 F Pulse Rate 73 73 77 Respiratory Rate 34 H 21 22 Blood Pressure 167/73 H 174/79 H 167/73 H Pulse Oximetry 99 94 96 Oxygen Delivery Method Room Air Oxygen Flow Rate 0 Narrative Exam Narrative: Alert and oriented x3. Appears to be in moderate distress from coughing and respiratory effort. Heart is tachycardic, regular rhythm, no murmur Lungs clear to auscultation bilaterally Extremities have no ankle edema Objective Labs Result Diagrams: 05/28/20 05:30 05/28/20 05:30 Labs: Laboratory Results - last 24 hr 05/27/20 05/27/20 05/27/20 18:45 18:52 19:08 WBC RBC Hgb Hct MCV MCH MCHC RDW Plt Count Neut % (Auto) Lymph % (Auto) [place] % (Auto) Eos % (Auto) Baso % (Auto) Neut # (Auto) Lymph # (Auto) [place] # (Auto) Eos # (Auto) Baso # (Auto) PT INR APTT D-Dimer Sodium 133 L Potassium 3.5 Chloride 98 Carbon Dioxide 27 BUN 21 H Creatinine 1.36 H Estimated GFR 37.7 L BUN/Creatinine Ratio 15.4 Glucose 95 Lactate Calcium 8.2 L Magnesium Total Bilirubin 0.9 Direct Bilirubin AST 326 H ALT 387 H Alkaline Phosphatase 121 Ammonia Lactate Dehydrogenase Total Creatine Kinase 838 H CK-MB (CK-2) 4.29 H CK-MB (CK-2) Rel Index 0.5 L Troponin I 0.069 H C-Reactive Protein NT-Pro-B Natriuret Pep Total Protein 6.4 Albumin 3.7 Globulin 2.7 Albumin/Globulin Ratio 1.4 Lipase 102 Procalcitonin TSH Urine Color Urine Appearance Urine pH Ur Specific [place] Urine Protein Urine Glucose (UA) Urine Ketones Urine Occult Blood Urine Nitrate Urine Bilirubin Urine Urobilinogen Ur Leukocyte Esterase Urine RBC Urine WBC Ur Squamous Epith Cells Amorphous Sediment Urine Bacteria Ur Culture Indicated? Ur Random Sodium Ethyl Alcohol < 10 COVID-19 PCR Positive H Cancelled 05/27/20 05/27/20 05/27/20 19:08 19:08 20:20 WBC 5.0 RBC 3.95 L Hgb 12.6 Hct 37.3 MCV 94.5 MCH 32.0 MCHC 33.9 RDW 14.8 Plt Count 102 L Neut % (Auto) 77.6 H Lymph % (Auto) 14.6 L [place] % (Auto) 7.1 Eos % (Auto) 0.1 L Baso % (Auto) 0.6 Neut # (Auto) 3900 Lymph # (Auto) 700 L [place] # (Auto) 400 Eos # (Auto) 0 Baso # (Auto) 0 PT INR APTT D-Dimer Sodium Potassium Chloride Carbon Dioxide BUN Creatinine Estimated GFR BUN/Creatinine Ratio Glucose Lactate Calcium Magnesium Total Bilirubin Direct Bilirubin AST ALT Alkaline Phosphatase Ammonia < 9 L Lactate Dehydrogenase Total Creatine Kinase CK-MB (CK-2) CK-MB (CK-2) Rel Index Troponin I C-Reactive Protein NT-Pro-B Natriuret Pep Total Protein Albumin Globulin Albumin/Globulin Ratio Lipase Procalcitonin 0.42 TSH Urine Color Urine Appearance Urine pH Ur Specific [place] Urine Protein Urine Glucose (UA) Urine Ketones Urine Occult Blood Urine Nitrate Urine Bilirubin Urine Urobilinogen Ur Leukocyte Esterase Urine RBC Urine WBC Ur Squamous Epith Cells Amorphous Sediment Urine Bacteria Ur Culture Indicated? Ur Random Sodium Ethyl Alcohol COVID-19 PCR 05/27/20 05/27/20 05/27/20 20:20 20:20 20:20 WBC RBC Hgb Hct MCV MCH MCHC RDW Plt Count Neut % (Auto) Lymph % (Auto) [place] % (Auto) Eos % (Auto) Baso % (Auto) Neut # (Auto) Lymph # (Auto) [place] # (Auto) Eos # (Auto) Baso # (Auto) PT 17.4 H INR 1.5 H APTT 31 D-Dimer Sodium Potassium Chloride Carbon Dioxide BUN Creatinine Estimated GFR BUN/Creatinine Ratio Glucose Lactate 1.2 Calcium Magnesium 2.1 Total Bilirubin Direct Bilirubin AST ALT Alkaline Phosphatase Ammonia Lactate Dehydrogenase Total Creatine Kinase CK-MB (CK-2) CK-MB (CK-2) Rel Index Troponin I C-Reactive Protein NT-Pro-B Natriuret Pep Total Protein Albumin Globulin Albumin/Globulin Ratio Lipase Procalcitonin TSH Urine Color Urine Appearance Urine pH Ur Specific [place] Urine Protein Urine Glucose (UA) Urine Ketones Urine Occult Blood Urine Nitrate Urine Bilirubin Urine Urobilinogen Ur Leukocyte Esterase Urine RBC Urine WBC Ur Squamous Epith Cells Amorphous Sediment Urine Bacteria Ur Culture Indicated? Ur Random Sodium Ethyl Alcohol COVID-19 PCR 05/27/20 05/27/20 05/27/20 21:20 21:20 23:30 WBC RBC Hgb Hct MCV MCH MCHC RDW Plt Count Neut % (Auto) Lymph % (Auto) [place] % (Auto) Eos % (Auto) Baso % (Auto) Neut # (Auto) Lymph # (Auto) [place] # (Auto) Eos # (Auto) Baso # (Auto) PT INR APTT D-Dimer Sodium Potassium Chloride Carbon Dioxide BUN Creatinine Estimated GFR BUN/Creatinine Ratio Glucose Lactate Calcium Magnesium Total Bilirubin Direct Bilirubin AST ALT Alkaline Phosphatase Ammonia Lactate Dehydrogenase Total Creatine Kinase CK-MB (CK-2) CK-MB (CK-2) Rel Index Troponin I 0.082 H C-Reactive Protein NT-Pro-B Natriuret Pep Total Protein Albumin Globulin Albumin/Globulin Ratio Lipase Procalcitonin TSH Urine Color Yellow Urine Appearance Cloudy Urine pH 6.0 Ur Specific [place] 1.020 Urine Protein 2+ H Urine Glucose (UA) Negative Urine Ketones Negative Urine Occult Blood 3+ H Urine Nitrate Negative Urine Bilirubin Negative Urine Urobilinogen 0.2 Ur Leukocyte Esterase Negative Urine RBC None seen Urine WBC 1-5/hpf Ur Squamous Epith Cells 1-5 /hpf Amorphous Sediment 2+ Urine Bacteria Few (2-10) H Ur Culture Indicated? Cult not indicated Ur Random Sodium 28 L Ethyl Alcohol COVID-19 PCR 05/27/20 05/27/20 05/27/20 23:30 23:30 23:30 WBC RBC Hgb Hct MCV MCH MCHC RDW Plt Count Neut % (Auto) Lymph % (Auto) [place] % (Auto) Eos % (Auto) Baso % (Auto) Neut # (Auto) Lymph # (Auto) [place] # (Auto) Eos # (Auto) Baso # (Auto) PT INR APTT D-Dimer Sodium Potassium Chloride Carbon Dioxide BUN Creatinine Estimated GFR BUN/Creatinine Ratio Glucose Lactate Calcium Magnesium Total Bilirubin Direct Bilirubin 0.4 AST ALT Alkaline Phosphatase Ammonia Lactate Dehydrogenase 822 H Total Creatine Kinase CK-MB (CK-2) CK-MB (CK-2) Rel Index Troponin I C-Reactive Protein 12.3 H NT-Pro-B Natriuret Pep Total Protein Albumin Globulin Albumin/Globulin Ratio Lipase Procalcitonin TSH Urine Color Urine Appearance Urine pH Ur Specific [place] Urine Protein Urine Glucose (UA) Urine Ketones Urine Occult Blood Urine Nitrate Urine Bilirubin Urine Urobilinogen Ur Leukocyte Esterase Urine RBC Urine WBC Ur Squamous Epith Cells Amorphous Sediment Urine Bacteria Ur Culture Indicated? Ur Random Sodium Ethyl Alcohol COVID-19 PCR 05/28/20 05/28/20 05/28/20 05:30 05:30 05:30 WBC 4.3 L RBC 3.74 L Hgb 12.0 Hct 35.4 L MCV 94.5 MCH 32.2 MCHC 34.0 RDW 14.7 Plt Count 98 L Neut % (Auto) 76.6 H Lymph % (Auto) 15.5 L [place] % (Auto) 7.5 Eos % (Auto) 0.2 L Baso % (Auto) 0.2 Neut # (Auto) 3300 Lymph # (Auto) 700 L [place] # (Auto) 300 Eos # (Auto) 0 Baso # (Auto) 0 PT INR APTT D-Dimer Sodium 135 L Potassium 3.7 Chloride 107 Carbon Dioxide 21 L BUN 19 H Creatinine 1.31 H Estimated GFR 39.4 L BUN/Creatinine Ratio 14.5 Glucose 87 Lactate Calcium 7.8 L Magnesium Total Bilirubin 0.7 Direct Bilirubin AST 237 H ALT 299 H Alkaline Phosphatase 91 Ammonia Lactate Dehydrogenase Total Creatine Kinase 626 H CK-MB (CK-2) 4.11 H CK-MB (CK-2) Rel Index 0.7 L Troponin I 0.061 H C-Reactive Protein NT-Pro-B Natriuret Pep Total Protein 5.6 L Albumin 3.0 L Globulin 2.6 Albumin/Globulin Ratio 1.2 Lipase Procalcitonin 0.42 TSH Urine Color Urine Appearance Urine pH Ur Specific [place] Urine Protein Urine Glucose (UA) Urine Ketones Urine Occult Blood Urine Nitrate Urine Bilirubin Urine Urobilinogen Ur Leukocyte Esterase Urine RBC Urine WBC Ur Squamous Epith Cells Amorphous Sediment Urine Bacteria Ur Culture Indicated? Ur Random Sodium Ethyl Alcohol COVID-19 PCR 05/28/20 05/28/20 05/28/20 05:30 05:30 05:30 WBC RBC Hgb Hct MCV MCH MCHC RDW Plt Count Neut % (Auto) Lymph % (Auto) [place] % (Auto) Eos % (Auto) Baso % (Auto) Neut # (Auto) Lymph # (Auto) [place] # (Auto) Eos # (Auto) Baso # (Auto) PT INR APTT D-Dimer 461 H Sodium Potassium Chloride Carbon Dioxide BUN Creatinine Estimated GFR BUN/Creatinine Ratio Glucose Lactate Calcium Magnesium Total Bilirubin Direct Bilirubin AST ALT Alkaline Phosphatase Ammonia Lactate Dehydrogenase Total Creatine Kinase CK-MB (CK-2) CK-MB (CK-2) Rel Index Troponin I C-Reactive Protein NT-Pro-B Natriuret Pep 514 H Total Protein Albumin Globulin Albumin/Globulin Ratio Lipase Procalcitonin TSH 0.673 Urine Color Urine Appearance Urine pH Ur Specific [place] Urine Protein Urine Glucose (UA) Urine Ketones Urine Occult Blood Urine Nitrate Urine Bilirubin Urine Urobilinogen Ur Leukocyte Esterase Urine RBC Urine WBC Ur Squamous Epith Cells Amorphous Sediment Urine Bacteria Ur Culture Indicated? Ur Random Sodium Ethyl Alcohol COVID-19 PCR 05/28/20 05:30 WBC RBC Hgb Hct MCV MCH MCHC RDW Plt Count Neut % (Auto) Lymph % (Auto) [place] % (Auto) Eos % (Auto) Baso % (Auto) Neut # (Auto) Lymph # (Auto) [place] # (Auto) Eos # (Auto) Baso # (Auto) PT 16.2 H INR 1.4 H APTT 29 D D-Dimer Sodium Potassium Chloride Carbon Dioxide BUN Creatinine Estimated GFR BUN/Creatinine Ratio Glucose Lactate Calcium Magnesium Total Bilirubin Direct Bilirubin AST ALT Alkaline Phosphatase Ammonia Lactate Dehydrogenase Total Creatine Kinase CK-MB (CK-2) CK-MB (CK-2) Rel Index Troponin I C-Reactive Protein NT-Pro-B Natriuret Pep Total Protein Albumin Globulin Albumin/Globulin Ratio Lipase Procalcitonin TSH Urine Color Urine Appearance Urine pH Ur Specific [place] Urine Protein Urine Glucose (UA) Urine Ketones Urine Occult Blood Urine Nitrate Urine Bilirubin Urine Urobilinogen Ur Leukocyte Esterase Urine RBC Urine WBC Ur Squamous Epith Cells Amorphous Sediment Urine Bacteria Ur Culture Indicated? Ur Random Sodium Ethyl Alcohol COVID-19 PCR Assessment & Plan Assessment & Plan narrative: This is a 79-year-old female patient who was traveling from [place] with her in an RV to [facility]. Over the last 2 days the patient is reported to have had increasing weakness and confusion with associated cough and fevers. Patient is found to have left upper lobe pneumonia with known COVID-19 exposure within the last week. 1. Left upper lobe pneumonia, Covid 19 positive, present on admission, active -patient with known COVID-19 exposure within the last week, rapid COVID-19 testing is positive. -patient had been maintaining adequate saturation at 94-95% without supplemental oxygen. With coughing she drops into the high 80s. Chest x-ray with a left upper lobe ground-glass consolidation. -white count is 5.0, BUN is 21 with a creatinine of 1 0.36, lactic acid is 1 2 with a procalcitonin 0.42. Elevated AST of 326 and ALT of 389. LDH is 822, CRP is 12.3. -COVID-GRAM Critical Illness Risk Score places the patient at high risk related to age, cardiac disease, history of cancer, elevated liver functions, elevated LDH, and ALT and renal failure. -current guidelines recommend: -limiting fluid to limit pulmonary injury. -Remdesivir when patient saturation drops below 94%. -Decadron 6 mg daily for 10 days is indicated when oxygen saturation dropped below 94%. -consult respiratory therapy to evaluate and treat. -albuterol MDI every 4 hours as needed. -per guidelines, with current moderate hypoxia, she will be initiated on dexamethasone 6 mg a day and REMDESIVIR 200 mg today along with 100 mg daily for 4 more days. She has signed the consent for the investigational use of that antiviral medication. -Episode of Diarrhea 05/28 is likely a Covid symptom 2. Metabolic encephalopathy secondary to pneumonia above, present on admission, active -the patient has demonstrated increasing confusion over the last 2 days per family. -no other apparent etiology is found for confusional state, alcohol is less than 10, ammonia is 9. -head CT finds no acute pathology but notes cerebral volume loss for age and periventricular deep white matter chronic ischemic small-vessel disease. -in the ER the patient unable to swallow tablets and consider risk for aspiration. Ordered bedside swallow evaluation. -patient is NPO, pending speech therapy to consult and evaluate. -patient remains redirectable and cooperative, behaviorally stable. She becomes quite emotional when reminded that she cannot have visitors and her will not be able to see her while in patient. 3. Elevated troponin, probable type 2 [place], present on admission, active. -the patient denies complaints of chest pain however 12 lead EKG reveals atrial flutter 4 1 with inverted T-waves in V3 through V6 concerning for ischemia. No other EKG is available for comparison, -total CK is elevated 838, CK-MB is 4.29 with an index % of 0.5. She has an elevated troponin at 0.069, recheck a troponin is further elevated at 0.082 and then 0.61. The patient denies chest pain but is short of breath was likely revealed to COVID-19 pneumonia above. -514 BNP. 4. Atrial flutter, unknown duration or chronicity, present on admission, active. -12 lead EKG finds atrial flutter with a 4-1 conduction with a ventricular rate of 71, no ectopy, normal axis, inverted T-waves in V3 through V6. -the patient cannot relate any history of atrial flutter but does relate a history of cardiac disease. -potassium is 3.5, ordered 40 mEq potassium K rider. Magnesium level is 2.1. -patient has been anticoagulated on Eliquis however doses unknown. -patient's was initially unable to be reached for dose confirmation, order Eliquis 5 mg twice daily which was later confirmed. -patient remains hemodynamically stable. -/ EKG converted to SR 5. Elevated creatinine, probable CKD possible DANUTA, present on admission, active -patient has a BUN of 21 and creatinine of 1.36. There is no prior values for comparison and the patient is unable to provide additional information. -urinalysis feels a pH of 1.020 with 2+ protein 3+ blood and few bacteria and negative for leukocyte esterase or nitrites or WBCs. BUN creatinine ratio is 15.4. EGFR is 37.7 and creatinine clearance is 31.83. -elevated creatinine does not appear to be pre renal, the patient does not appear clinically dehydrated, abnormal creatinine may be related to COVID-19 inflammatory process or chronic disease. Will order urine sodium. -no supplementary IV fluid per treatment guidelines for COVID-19. Will monitor renal function on chemistries. 6. Elevated transaminase, probably acute, present on admission, active. -bilirubin is normal at 0.9 and AST is elevated at 326 and ALT at 387 with a normal alkaline phosphatase at 121. Albumin is 3.7 and ammonia is less than 9. -this represents liver injury secondary to coronavirus infection. -on 05/28 the AST is 299 with an ALT of 237. -will repeat complete metabolic panel in the morning. Isolation: Droplet, COVID-19 positive. VTE prophylaxis: Bilateral SCDs, anticoagulated on Eliquis IV fluid: Saline lock Diet: NPO until swallow evaluation. Code status: Due to patient's impaired cognition she will be FULL CODE until such time further status could be clarified. The patient's is surrogate decision maker. Quality VTE Deep Vein Thrombosis/Pulmonary Embolism Present on Admission: No
--- NOTE | 2020-05-28 15:07 | CM.DANOTE ---
Discharge Planning/Care Management DCP: assessment: Initiated: case received and discussed during Team Rounds with followup discussions with care team members as more information was known. Specialized Precautions: NOTED: COVID-19 test is POSITIVE Pt is a 79 year old female who has been traveling from [place] with her in an RV to [facility]. She admitted late last night to care of hospitalist team and has tested + for COVID-19. Much of the morning was spent with Dr. Patrick seeing pt and setting a POC, assisting pt's who arrived to visit at the ICU in a mask and having passed the screening test at the hospital entry. RN coordinator Odette assisted him to get an immediate appt at the [facility] clinic, Dr. Patrick spoke with him are the plan and that he would not be able to come back to the unit as a visitor. He seemed to listen respectfully to all and was quickly assisted to the hospital entry. Admission Counselor Pati was able to obtain insurance information: Medicare is confirmed and pt or her will provide updated informatin re BCBS supplement once they have access to that information. Pt's cell: [phone] Mikel: [phone]. P: follow as POC unfolds to speak with pt and/or her via phone for introduction of role and to assist with d/c issues and options as these become clearer. CM Discharge Assessment Start: 05/28/20 15:06 Freq: Status: Active Protocol: Document 05/28/20 15:07 ITV (Rec: 05/28/20 15:07 ITV [id number]) Discharge Planning Assessment Advance Directives? No History Provided By Medical Record Prior Living Arrangements House Household Members spouse Is patient alert and oriented? Yes Review Status In Process
--- NOTE | 2020-05-28 15:09 | SLP.IPNOTE ---
At 15:05, SNOW REMOVAL/PLOWING checked in with nurse working with pt. Nurse reported that pt is doing better with swallowing and her cognition than previously noted. It appears a ST evaluation is no longer warranted at this time.
[2020-05-28] MEDS: TIZANIDINE 4 MG TABLET PO ×2 (15:29→23:36)
--- NOTE | 2020-05-28 16:40 | PC.NURSE ---
1600- Patient assisted to the bathroom. Patient having loose stools. Patient has significant hypoxia when mobilized down to 85% on room air. Once settled saturations respond back to 94% on room air. Patient states she is feeling ok, no pain at this time. Will monitor closely.
[2020-05-28] MEDS: LOSARTAN 25 MG TABLET PO (17:30)
[2020-05-28] MEDS: TOPIRAMATE 100 MG TABLET PO (20:48)
--- NOTE | 2020-05-28 22:57 | PC.NURSE ---
22:50- Patient had two runs of 3rd degree heart block. ALO Nunez notified and orders rec. Patient back in [facility] now.
[2020-05-28 23:35] LABS: Blood Urea Nitrogen 18 mg/dL (7-17); Calcium 8.5 mg/dL (8.4-10.2); Carbon Dioxide 23 mmol/L (22-32); Chloride 107 mmol/L (98-107); Estimated Glomerular Filt Rate 40.1 mL/min (>60); Glucose 121 mg/dL (80-110); HEMOLYSIS 15 (0-50); Magnesium 2.1 mg/dL (1.6-2.3); Potassium 4.4 mmol/L (3.4-5.1); Sodium 136 mmol/L (137-145)
[2020-05-28 23:47] LABS: Troponin I 0.025 ng/mL (0.01-0.034)
[2020-05-29] VITALS: BP 153/77; PULSE 62; RESP 19; TEMP 36.5; O2SAT 98
[2020-05-29 02:19] VITALS: PULSE 52; RESP 11; O2SAT 96
[2020-05-29 03:47] VITALS: BP 188/86; PULSE 60; RESP 23; O2SAT 94
[2020-05-29 06:07] LABS: Add Manual Diff / Slide Review NO; Basophils Absolute Auto 0 /uL (0-100); Basophils Percent Auto 0.3 % (0-2); Eosinophils Absolute Auto 0 /uL (0-450); Hematocrit 33.6 % (36-46); Hemoglobin 11.2 g/dL (12.0-16.0); Lymphocytes Absolute Auto 600 /uL (1100-4500); Lymphocytes Percent Auto 13.8 % (25-40); Mean Corpuscular HGB Conc 33.2 % (30-36); Mean Corpuscular Hemoglobin 31.4 PG (26-34); Mean Corpuscular Volume 94.7 fL (80-100); Monocytes Absolute Auto 400 /uL (0-900); Monocytes Percent Auto 7.9 % (3-14); Neutrophils Absolute Auto 3500 /uL (1500-7000); Platelet Count 86 X10^3/uL (150-400); Red Blood Cell Count 3.55 X10^6/uL (4.0-5.2); Red Cell Distribution Width 15.2 % (11.6-14.8); White Blood Cell Count 4.5 X10^3/uL (4.5-11.0)
[2020-05-29 06:10] VITALS: BP 195/89; PULSE 53; RESP 17; TEMP 36.5; O2SAT 95
--- NOTE | 2020-05-29 06:12 | PC.NURSE ---
Director [employer] Note-Patient is oriented x3, wakes up from dozing a forgetful, but reorients well, says I'm just so tired all the time denies dyspnea or pain. Has mild shortness of breath OOB to BSC, does not desat <86%, recovers quickly, does have 2-3 second apnea while sleeping. SB/SR rate 50s-70s, no ectopi or CHB noted, afebrile. Remains in Airborne isolation.
[2020-05-29 06:16] LABS: Alanine Aminotransferase 272 IU/L (<35); Albumin 2.8 g/dL (3.5-5.0); Albumin Globulin Ratio 1.2 (1.0-2.8); Alkaline Phosphatase 97 U/L (38-126); Aspartate Aminotransferase 233 IU/L (14-36); Bilirubin Total 0.4 mg/dL (0.2-1.3); Blood Urea Nitrogen 18 mg/dL (7-17); Calcium 8.2 mg/dL (8.4-10.2); Carbon Dioxide 23 mmol/L (22-32); Chloride 108 mmol/L (98-107); Estimated Glomerular Filt Rate 43.6 mL/min (>60); Globulin 2.4 g/dL (1.7-4.1); Glucose 101 mg/dL (80-110); HEMOLYSIS < 15 (0-50); Potassium 3.3 mmol/L (3.4-5.1); Sodium 136 mmol/L (137-145); Total Protein 5.2 g/dL (6.3-8.2)
[2020-05-29 06:25] LABS: NT-proBNP (BNP-Adult 18+) 2700 pg/mL (<450)
[2020-05-29 08:38] VITALS: BP 153/67; PULSE 87; RESP 16; TEMP 36.6; O2SAT 95
[2020-05-29] MEDS: TIZANIDINE 4 MG TABLET PO (08:43)
[2020-05-29] MEDS: APIXABAN 5 MG TABLET PO (08:43)
[2020-05-29] MEDS: PANTOPRAZOLE 40 MG VIAL IV (08:43)
[2020-05-29] MEDS: DEXAMETHASONE 10 MG/ML VIAL 6 MG IV (08:44)
[2020-05-29] MEDS: ANASTROZOLE 1 MG TABLET PO (08:44)
[2020-05-29] MEDS: TOPIRAMATE 100 MG TABLET PO (08:45)
[2020-05-29] MEDS: ESCITALOPRAM 10 MG TABLET PO (08:45)
[2020-05-29] MEDS: LOSARTAN 25 MG TABLET PO (08:45)
[2020-05-29] MEDS: SODIUM CHLORIDE 0.9% FLUSH 10 ML IV (08:45)
[2020-05-29] MEDS: ROSUVASTATIN 10 MG TABLET 40 MG PO (08:45)
[2020-05-29] MEDS: REMDESIVIR 1 EACH INJ (09:05)
[2020-05-29 10:13] VITALS: RESP 18; O2SAT 97
[2020-05-29] MEDS: ALBUTEROL HFA 200 PUFF/18 GM INH (COVID POS/VENT PTS) INH (10:13)
--- NOTE | 2020-05-29 11:09 | P.DS_ITS ---
History of Present Illness History of Present Illness Date Patient Seen: 05/29/20 Time Patient Seen: 10:30 Chief complaint: Increased Confusion Narrative: As per JORDON Forbes: Ms. Nelsy Law this 79-year-old female with an unknown past medical history who presents to the emergency room via EMS being brought in for incre ased weakness for 2 days and increasing confusion for 4 hours. Patient oddly enough can not state person place and date but cannot recall events including count she at the hospital. The patient's is not available in person or by phone. Reportedly the patient was traveling from [place] via however date of departure is unknown. It is known she had been in contact with her [id number] who was COVID-19 positive. The patient subsequently developed progressive weakness and increasing confusion with associated cough, fevers and chills. The patient denies complaints of headaches or dizziness, nasal congestion or sore throat. She reports no complaints of chest pain or palpitations. She does acknowledge a history of heart problems but is unable to specify what they are. The patient has exertional dyspnea and a dry nonproductive cough. She denies complaints of abdominal pain, nausea or vomiting. She reports no diarrhea or constipation and reports no urinary symptoms. Patient reports no balance problems or falls. In the ER the patient's identified to be anticoagulated on Eliquis again for unclear reason. Upon arrival to the ER the patient is febrile with a temperature of 102.4?, heart rate of 74, blood pressure 180/77, and respirations of 18 saturating 95% on room air. A chest x-ray is obtained finding left upper lobe consolidative ground-glass opacities, heart size is normal with no effusions. A head CT is obtained which finds no acute pathology, cerebral volume loss for age, periventricular and deep white matter chronic ischemic small-vessel disease. Twelve lead EKG identifies atrial flutter with a 4-1 conduction without ectopy, inverted T-waves in V3 through 6. On laboratory analysis the patient has a white count of 5.0, hemoglobin of 12.6, hematocrit of 37.3 and platelets of 102. On coagulation she has a PT of 17.4, INR of 1.5 and a PTT of 31. She has a sodium 133, potassium 3.5, BUN of 21 and a creatinine of 1.36. She has an EGFR 37.7. On liver functions she has a total bilirubin of 0.9, AST of 326, ALT of 387, alkaline phosphatase of 121. Her ammonia is less than 9 and she has an albumin of 3.7. Lactic acid is 1.2 with procalcitonin 0.42. Total CK is elevated at 838 with CK-MB of 4.29 and in index of 0.5. She has a troponin of 0.069. In the ER the patient was administered Tylenol but was unable to swallow Tylenol and was administered rectally due to concern for aspiration. She is given normal saline 125 cc/hour and has had midline placed. Blood cultures are drawn and she was given Levaquin 750 mg azithromycin 500 mg. The patient is admitted to the hospital for community-acquired pneumonia with altered mental status with known COVID-19 exposure. Discharge Providers Provider Date of admission: 05/27/20 22:16 Discharge Date: 05/29/20 Consults: 05/27/20 18:30 Consult After Hours PICC Line RN Stat Comment: 05/28/20 00:12 Consult to Respiratory Therapy Evaluate & Treat Comment: Pneumonia, COVID-19 positive, wheezing Physician Instructions: Evaluate and treat 05/28/20 02:32 Consult to Speech Therapy Evaluate & Treat Comment: Metabolic encephalopathy with Impaired swallowing Physician Instructions: Evaluate and treat Discharge provider: Jimbo Wray DO Summary Hospital Course Discharge Diagnosis: 1. Left upper lobe pneumonia, Covid 19 positive, present on admission, active 2. Metabolic encephalopathy secondary to pneumonia above, present on admission, resolved. 3. Elevated troponin, probable type 2 PA, present on admission, resolved. 4. Atrial flutter, unknown duration or chronicity, present on admission, resolved. 5. Elevated creatinine, probable CKD possible DANUTA, present on admission, active 6. Elevated transaminase, probably acute, present on admission, active. Hospital Course: Rapid COVID-19 testing was positive on admission. Patient was admitted given oxygenation requirement as well as laboratory evidence of severe disease including elevated AST and ALT, elevated LDH, and an elevated CRP of 12. Her procalcitonin was borderline at 0.4. She was requiring some supplemental oxygen primarily when ambulating, but had generally been in the mid 90s at rest. This continued over the course of 2 days. She was started on remdesevir and received a total of 2 doses. She was also given 2 days of Decadron 6 mg daily. After 2 days of therapy, she had symptomatically improved and was no longer re quiring supplemental oxygen. Her liver enzymes remained elevated, but slowly were improving. Her creatinine also improved from 1.36 to 1.2. Her has also reportedly tested positive for COVID-19. She had been traveling from [place] and arrived in [facility] on May 26. Discussed need for continued isolation, and given the is already positive she can do this in their RV. As patient no longer requires hospitalization at this time, she is being discharged. I do recommend that she follow-up with a primary care provider, preferably via tele Health visit and repeat laboratory examinations once her symptoms have resolved for at least 7 days. Status at Discharge Cognitive/behavioral status at discharge: oriented Functional status at discharge: independent ambulation Overall status at discharge: patient is progressing back to baseline Time Spent with Patient Time spent: Greater than 30 minutes Exam Vital Signs (past 8 hours): - 05/29/20 03:47 05/29/20 06:10 05/29/20 08:38 Temperature 97.7 F 97.8 F Pulse Rate 60 53 L 87 Respiratory Rate 23 17 16 Blood Pressure 188/86 H 195/89 H 153/67 H Pulse Oximetry 94 95 95 05/29/20 10:13 Temperature Pulse Rate Respiratory Rate 18 Blood Pressure Pulse Oximetry 97 Oxygen Delivery Method Room Air Oxygen Flow Rate 0 Narrative Exam Narrative: GENERAL APPEARANCE: Elderly female, slightly fatigued, no acute distress breathing comfortably. SKIN: Inspection of the skin reveals no rashes, ulcerations or petechiae. HEENT: Normocephalic atraumatic, extraocular muscles are intact, oropharynx is clear and mucous membranes are moist CHEST: Normal AP diameter and normal contour without any kyphoscoliosis. LUNGS: No respiratory distress, equal chest rise bilaterally. CARDIOVASCULAR: There was a regular rate and rhythm. ABDOMEN: Soft, nondistended, nontender. MUSCULOSKELETAL: There was no tenderness or effusions noted. Muscle strength and tone were normal. EXTREMITIES: No cyanosis, clubbing or edema. NEUROLOGIC: Alert and oriented x 3. Normal affect. No focal deficits. Objective Labs Result Diagrams: 05/29/20 06:01 05/29/20 06:01 Labs: Laboratory Results - last 24 hr 05/28/20 05/29/20 05/29/20 23:15 06:01 06:01 WBC 4.5 RBC 3.55 L Hgb 11.2 L Hct 33.6 L MCV 94.7 MCH 31.4 MCHC 33.2 RDW 15.2 H Plt Count 86 L Neut % (Auto) 78.0 H Lymph % (Auto) 13.8 L [place] % (Auto) 7.9 Eos % (Auto) 0.0 L Baso % (Auto) 0.3 Neut # (Auto) 3500 Lymph # (Auto) 600 L [place] # (Auto) 400 Eos # (Auto) 0 Baso # (Auto) 0 Sodium 136 L 136 L Potassium 4.4 3.3 L Chloride 107 108 H Carbon Dioxide 23 23 BUN 18 H 18 H Creatinine 1.29 H 1.20 H Estimated GFR 40.1 L 43.6 L BUN/Creatinine Ratio 14.0 15.0 Glucose 121 H 101 Calcium 8.5 8.2 L Magnesium 2.1 Total Bilirubin 0.4 AST 233 H ALT 272 H Alkaline Phosphatase 97 Troponin I 0.025 NT-Pro-B Natriuret Pep 2700 H Total Protein 5.2 L Albumin 2.8 L Globulin 2.4 Albumin/Globulin Ratio 1.2 Discharge Plan Discharge Plan Patient Disposition: Home Discharge comment: Your admitted to the hospital with COVID-19. You got a few doses of steroids and antiviral medications. You improved quickly and there is no need for additional medications upon discharge. Please isolate yourself for at least 7 days following the time when your symptoms (primarily shortness of breath) resolve. Discharge orders & Medications Prescriptions: Continued anastrozole 1 mg Tablet 1 mg PO DAILY RF: 0 amiodarone 200 mg Tablet 200 mg PO DAILY RF: 0 tizanidine 4 mg tablet 4 mg PO Q8H RF: 0 losartan 25 mg tablet 25 mg PO BEDTIME PRN (Reason: Blood Pressure) RF: 0 losartan 25 mg tablet 25 mg PO DAILY RF: 0 topiramate 100 mg tablet 100 mg PO BID RF: 0 escitalopram oxalate 10 mg tablet 10 mg PO DAILY RF: 0 rosuvastatin 40 mg tablet 40 mg PO DAILY RF: 0 Eliquis 5 mg tablet 5 mg PO BID RF: 0 Discharge Health Status Health Concerns: COVID-19 Pneumonia. Diet/Activity/Treatments Diet: Diet as Tolerated Activity: As tolerated Visit Report/Discharge Packet Instructions: DI for COVID-19 (Suspected or Confirmed ), Coronavirus Disease 2019 Visit Report Forms: Patient Portal/API, Stroke Signs & Symptoms Quality VTE Deep Vein Thrombosis/Pulmonary Embolism Present on Admission: No
--- NOTE | 2020-06-02 11:13 | CM.SWNOTE ---
Social Work Note 7.8.20 Received call from Nadia Nelsy's dtr who lives in [place]. She had called this office requesting information about Nelsy's discharge because she had not heard from her father lately re health status and when she spoke w/her mother by phone she could barely talk. Dtr states both her parents are COVID + but she is very concerned that her mother is declining at home, not improving. Nadia goes on to say her parents are [place], and have known each other since they were very young. Nadia describes her father as controlling and domineering and often likes to speak for and make decisions for his . This [employer]IE[employer] explained to Nadia that no medical information could be shared but then did strongly encourage Nadia to call the Police department/EMS to request a well check for her parents, especially since both are COVID + and this being a novel virus, it's possible recovery might be unpredictable (?) Dtr appreciative for the call back. JW
== END 2020-05-29 13:00 | disposition home or self-care (01) | DRG 177 ==
LOC: ED 21:34 → ICU 22:17
PROVIDERS: Family Medicine; Admitting Provider Nurse Practitioner Adult Health; Emergency Provider Emergency Medicine; Referring Provider Emergency Medicine; Visit Provider Nurse Practitioner Adult Health
DX: U07.1 COVID-19 (principal); J12.89 Other viral pneumonia; G93.41 Metabolic encephalopathy; I21.A1 Myocardial infarction type 2; I48.92 Unspecified atrial flutter; N17.9 Acute kidney failure, unspecified; I44.2 Atrioventricular block, complete; N18.9 Chronic kidney disease, unspecified; Z85.3 Personal history of malignant neoplasm of breast
CPT/HCPCS: 36415; 36592; 70450; 71045; 80048; 80053; 80320; 81001; 82140; 82248; 82550; 82553; 83605; 83615; 83690; 83735; 83880; 84145; 84300; 84443; 84484; 85025; 85379; 85610; 85730; 86140; 87040; 87635; 93005; 94640; 94762; 96361; 96365; 99285; 99291; 99292; C9113; J1100; J1642; J1956; J3480

== ENCOUNTER 2020-06-03 13:37 | Inpatient (IN) | payer MEDICARE, BC, SELFPAY ==
[2020-05-28 00:27] VITALS: BMI 23.4
[2020-06-03] VITALS (18 sets, daily range): BP systolic 140–222; BP diastolic 65–107; PULSE 65–80; RESP 17–48; TEMP 36.5–36.8; O2SAT 96–99; BMI 20.3
--- NOTE | 2020-06-03 13:42 | DI.RAD.S_ITS ---
PROCEDURE: XR CHEST 1V INDICATIONS: SOB, fatigue TECHNIQUE: One view of the chest was acquired. COMPARISON: [facility], CR, XR CHEST 1V, 05/27/2020, 18:37. FINDINGS: Surgical changes and devices: Postoperative changes of the lower cervical spine and left axilla are again evident. An electronic apparatus is seen overlying the heart. Lungs and pleura: A subtle area of consolidation within the right lower lobe is new since the previous study. Scarring versus airspace disease within the left upper lobe is similar to the prior exam. There may also be developing left lower lobe consolidation. Mediastinum: Mediastinal contours appear normal. Heart size is normal. There is aortic atherosclerosis. Bones and chest wall: No suspicious bony lesions. Overlying soft tissues appear unremarkable. IMPRESSION: 1. Subtle bibasilar areas of consolidation are suspicious for bibasilar pneumonia. 2. Increased density within the left lung apex may represent scarring and is similar to the previous exam. Apical pneumonia cannot be excluded. Dictated by: Conrado Khan M.D. on 06/03/2020 at 13:41 Approved by: Conrado Khan M.D. on 06/03/2020 at 13:44
[2020-06-03 14:21] LABS: Hematocrit 38.3 % (36-46); Hemoglobin 12.7 g/dL (12.0-16.0); Mean Corpuscular HGB Conc 33.1 % (30-36); Mean Corpuscular Hemoglobin 32.3 PG (26-34); Mean Corpuscular Volume 97.7 fL (80-100); Platelet Count 174 X10^3/uL (150-400); Red Blood Cell Count 3.92 X10^6/uL (4.0-5.2); Red Cell Distribution Width 15.1 % (11.6-14.8); White Blood Cell Count 4.2 X10^3/uL (4.5-11.0)
[2020-06-03 14:29] LABS: Add Manual Diff / Slide Review YES
[2020-06-03 14:36] LABS: Lactate (Lactic Acid) 1.1 mmol/L (0.7-2.1)
[2020-06-03 14:37] LABS: BUN Creatinine Ratio 15.4 (6-22); Blood Urea Nitrogen 14 mg/dL (7-17); C-Reactive Protein Quant 4.1 mg/dL (<1.0); Calcium 8.4 mg/dL (8.4-10.2); Carbon Dioxide 25 mmol/L (22-32); Chloride 106 mmol/L (98-107); Creatine Kinase 53 U/L (30-135); Estimated Glomerular Filt Rate 59.9 mL/min (>60); Glucose 101 mg/dL (80-110); HEMOLYSIS 21 (0-50); Potassium 3.5 mmol/L (3.4-5.1); Sodium 138 mmol/L (137-145)
[2020-06-03 14:46] LABS: NT-proBNP (BNP-Adult 18+) 446 pg/mL (<450); Troponin I 0.013 ng/mL (0.01-0.034)
[2020-06-03] MEDS: SODIUM CHLORIDE 0.9% 1,000 ML 1000 ML IV (14:50)
--- NOTE | 2020-06-03 14:54 | ED_ITS ---
HPI - Weakness General Chief complaint: Weakness Stated complaint: gen weakness Time Seen by Provider: 06/03/20 13:37 Source: patient and EMS Mode of arrival: EMS History of Present Illness HPI Narrative: 79F nonsmoker with history of hypertension, hyperlipidemia, atrial flutter on Eliquis with a recent admission for COVID-19 returns by EMS secondary to 2 days of increasing generalized weakness and decreased appetite. She has not been eating or drinking and was too weak to get out of bed and therefore transferred by EMS. She has had some ongoing cough and subjective fever. She is nausea but denies any vomiting. She denies any urinary symptoms such as dysuria, frequency or urgency. MD Complaint: generalized weakness Onset (ago): day(s) Duration: constant Location: generalized Severity: moderate Relieving factors: none Exacerbating factors: none Associated symptoms: confusion and loss of appetite Related Data Home Medications Medication Instructions Recorded Confirmed Eliquis 5 mg PO BID 05/28/20 05/28/20 amiodarone 200 mg PO DAILY 05/28/20 05/28/20 anastrozole 1 mg PO DAILY 05/28/20 05/28/20 escitalopram oxalate 10 mg PO DAILY 05/28/20 05/28/20 losartan 25 mg PO BEDTIME PRN 05/28/20 05/28/20 losartan 25 mg PO DAILY 05/28/20 05/28/20 rosuvastatin 40 mg PO DAILY 05/28/20 05/28/20 tizanidine 4 mg PO Q8H 05/28/20 05/28/20 topiramate 100 mg PO BID 05/28/20 05/28/20 Allergies Allergy/AdvReac Type Severity Reaction Status Date / Time Sulfa (Sulfonamide Allergy Verified 05/27/20 18:36 Antibiotics) Review of Systems Constitutional Constitutional: Denies chills, Denies fatigue, Denies fever(s), Denies frequent falls, Denies lethargy and Denies weakness Eyes Eyes: Denies change in vision, Denies eye discharge, Denies irritation and Denies loss of vision ENT Ears, Nose, Mouth, and Throat: Denies change in voice, Denies dizziness, Denies neck pain, Denies sore throat and Denies throat swelling Cardiovascular Cardiovascular: Denies chest pain, Denies irregular heart rhythm, Denies lightheadedness, Denies palpitations, Reports dyspnea, Denies dyspnea on exertion and Denies orthopnea Respiratory Respiratory: Reports cough, Reports dyspnea, Denies dyspnea on exertion and Denies wheezing Gastrointestinal Gastrointestinal: Denies abdominal pain, Denies change in bowel habits, Denies diarrhea, Denies nausea and Denies vomiting Musculoskeletal Musculoskeletal: Denies neck pain and Denies numbness Integumentary/Breasts Skin/Breast: Denies pruritus, Denies erythema, Denies rash and Denies wounds Neurologic Neurologic: Denies behavioral changes, Denies confusion, Denies dizziness, Denies frequent falls, Denies loss of vision, Denies numbness and Denies weakness Psychiatric Psychiatric: Denies anxiety, Denies behavioral changes, Denies confusion, Denies depression, Denies homicidal ideation and Denies suicidal ideation Endocrine Endocrine: Denies fatigue, Denies flushing and Denies palpitations Hematologic/Lymphatic Hematologic/Lymphatic: Denies easy bruising Allergic/Immunologic Allergic/Immunologic: Denies urticaria, Denies throat swelling and Denies wheezing Patient History Medical History Atrial flutter (Acute) Hypertension (Acute) Medical history unknown (Acute) Surgical History History of fusion of cervical spine (Acute) History of left mastectomy (Acute) Social History household members: spouse Smoking Status: Never smoker alcohol intake: never Smoking Status: Never smoker alcohol intake frequency: 0-2 drinks per day Substance Use Type: does not use Exam Narrative Exam Narrative: GENERAL: [79] year old patient appears stated age. Well- nourished, well-developed patient, in mild distress. HEAD: Atraumatic. Normocephalic. EYES: Pupils equal round and reactive. Extraocular motions intact. No scleral icterus. No injection or drainage. ENT: Dry mucous membranes. Nose without bleeding, purulent drainage. Throat without erythema, tonsillar hypertrophy or exudate. Airway patent. NECK: Trachea midline. Non tender CARDIOVASCULAR: Regular rate and rhythm without murmurs, gallops, or rubs. RESPIRATORY: Crackles in B/L bases, R>L GASTROINTESTINAL: Abdomen soft, non-tender, nondistended. EXTREMITIES: No edema or joint tenderness. BACK: Nontender without deformity or crepitance. No flank tenderness. NEURO: Alert, some confusion noted with relatively slow responses. GCS14 SKIN: Poor turgor. Initial Vital Signs Initial Vital Signs: Vital Signs Temperature 98.3 F 06/03/20 13:37 Pulse Rate 72 06/03/20 13:37 Respiratory Rate 18 06/03/20 13:37 Blood Pressure 190/84 H 06/03/20 13:37 Pulse Oximetry 97 06/03/20 13:37 Course Orders Ordered: ED Orders 06/03/20 13:42 XR chest 1V Stat 06/03/20 13:45 Basic Metabolic Panel Stat C-Reactive Protein Quant Stat Complete Blood Count AUTO DIFF Stat Ferritin Stat Lactate (Lactic Acid) Stat NT-proBNP (BNP-Adult 18+) Stat Procalcitonin Stat Troponin & CK Cardiac Panel Stat 06/03/20 15:05 Blood Culture Stat 06/03/20 15:25 Urinalysis and Microscopic Stat Ondansetron HCl (Zofran) 4 mg IV Q4HR PRN PRN Reason: Nausea And Vomiting Discontinued Medications Hydralazine HCl (Apresoline) 10 mg IV NOW ONE Stop: 06/03/20 17:00 Sodium Chloride (Normal Saline 0.9%) 1,000 mls @ 1,000 mls/hr IV BOLUS ONE Stop: 06/03/20 14:40 Last Infusion: 06/03/20 16:54 Dose: 0 mls/hr Documented by: Admin: 06/03/20 14:50 Dose: 1,000 mls/hr Documented by: ADI Vital Signs Vital signs: Vital Signs - 8 hr 06/03/20 13:37 06/03/20 14:14 06/03/20 14:30 Temperature 98.3 F Pulse Rate 72 66 66 Respiratory Rate 18 Blood Pressure 190/84 H Pulse Oximetry 97 96 96 06/03/20 14:50 06/03/20 15:00 06/03/20 15:30 Temperature Pulse Rate 73 66 68 Respiratory Rate Blood Pressure 186/83 H 183/88 H 222/107 H Pulse Oximetry 96 97 98 06/03/20 16:00 06/03/20 16:26 06/03/20 16:30 Temperature Pulse Rate 69 80 71 Respiratory Rate Blood Pressure 214/94 H 197/94 H 204/88 H Pulse Oximetry 98 98 97 MDM - Weakness Lab Data Result diagrams: 06/03/20 13:45 06/03/20 13:45 Labs: Lab Results 06/03/20 06/03/20 06/03/20 Range/Units 13:45 13:45 13:45 WBC 4.2 L (4.5-11.0) X10^3/uL RBC 3.92 L (4.0-5.2) X10^6/uL Hgb 12.7 (12.0-16.0) g/dL Hct 38.3 (36-46) % MCV 97.7 D (80-100) fL MCH 32.3 (26-34) PG MCHC 33.1 (30-36) % RDW 15.1 H (11.6-14.8) % Plt Count 174 (150-400) X10^3/uL Neut % (Auto) Not Reportable Lymph % (Auto) Not Reportable [place] % (Auto) Not Reportable Eos % (Auto) Not Reportable Baso % (Auto) Not Reportable Lymph # (Auto) Not Reportable [place] # (Auto) Not Reportable Baso # (Auto) Not Reportable Total Counted 100 Seg Neutrophils % 62.0 (38-70) % Lymphocytes % (Manual) 26.0 (25-45) % Monocytes % (Manual) 10.0 (2-11) % Eosinophils % (Manual) 1.0 L (2-4) % Basophils % (Manual) 1.0 (0-1) % Neutrophils # (Manual) 2604 L (4876-8147) /uL RBC Morphology Normal morphology Sodium 138 (137-145) mmol/L Potassium 3.5 (3.4-5.1) mmol/L Chloride 106 (98-107) mmol/L Carbon Dioxide 25 (22-32) mmol/L BUN 14 (7-17) mg/dL Creatinine 0.91 (0.52-1.04) mg/dL Estimated GFR 59.9 L (>60) mL/min BUN/Creatinine Ratio 15.4 (6-22) Glucose 101 (80-110) mg/dL Lactate (0.7-2.1) mmol/L Calcium 8.4 (8.4-10.2) mg/dL Ferritin 203 (11-264) ng/mL Total Creatine Kinase 53 D (30-135) U/L CK-MB (CK-2) TNP CK-MB (CK-2) Rel Index TNP Troponin I 0.013 (0.01-0.034) ng/mL C-Reactive Protein 4.1 H (<1.0) mg/dL NT-Pro-B Natriuret Pep 446 (<450) pg/mL Procalcitonin < 0.05 (<0.5) ng/mL Urine Color Urine Appearance Urine pH (4.5-8.0) Ur Specific [place] (1.000-1.035) Urine Protein (Negative) Urine Glucose (UA) (Negative) g/dL Urine Ketones (NEGATIVE) Urine Occult Blood (Negative) Urine Nitrate (Negative) Urine Bilirubin (NEGATIVE) Urine Urobilinogen (0.2) E.U./dL Ur Leukocyte Esterase (NEGATIVE) Urine RBC (0-5/HPF) Urine WBC (0-5/HPF) Amorphous Sediment Urine Bacteria (None) Ur Culture Indicated? 06/03/20 06/03/20 Range/Units 13:45 15:25 WBC (4.5-11.0) X10^3/uL RBC (4.0-5.2) X10^6/uL Hgb (12.0-16.0) g/dL Hct (36-46) % MCV (80-100) fL MCH (26-34) PG MCHC (30-36) % RDW (11.6-14.8) % Plt Count (150-400) X10^3/uL Neut % (Auto) Lymph % (Auto) [place] % (Auto) Eos % (Auto) Baso % (Auto) Lymph # (Auto) [place] # (Auto) Baso # (Auto) Total Counted Seg Neutrophils % (38-70) % Lymphocytes % (Manual) (25-45) % Monocytes % (Manual) (2-11) % Eosinophils % (Manual) (2-4) % Basophils % (Manual) (0-1) % Neutrophils # (Manual) (1290-4182) /uL RBC Morphology Sodium (137-145) mmol/L Potassium (3.4-5.1) mmol/L Chloride (98-107) mmol/L Carbon Dioxide (22-32) mmol/L BUN (7-17) mg/dL Creatinine (0.52-1.04) mg/dL Estimated GFR (>60) mL/min BUN/Creatinine Ratio (6-22) Glucose (80-110) mg/dL Lactate 1.1 (0.7-2.1) mmol/L Calcium (8.4-10.2) mg/dL Ferritin (11-264) ng/mL Total Creatine Kinase (30-135) U/L CK-MB (CK-2) CK-MB (CK-2) Rel Index Troponin I (0.01-0.034) ng/mL C-Reactive Protein (<1.0) mg/dL NT-Pro-B Natriuret Pep (<450) pg/mL Procalcitonin (<0.5) ng/mL Urine Color Yellow Urine Appearance Clear Urine pH 8.0 (4.5-8.0) Ur Specific [place] 1.010 (1.000-1.035) Urine Protein Trace H (Negative) Urine Glucose (UA) Negative (Negative) g/dL Urine Ketones Negative (NEGATIVE) Urine Occult Blood Trace-intact (Negative) Urine Nitrate Negative (Negative) Urine Bilirubin Negative (NEGATIVE) Urine Urobilinogen 0.2 (0.2) E.U./dL Ur Leukocyte Esterase Negative (NEGATIVE) Urine RBC 0-1/hpf (0-5/HPF) Urine WBC None seen (0-5/HPF) Amorphous Sediment 1+ Urine Bacteria None seen (None) Ur Culture Indicated? Cult not indicated MDM Narrative Medical decision making narrative: Patient requires hospitalization for stabilization and ongoing evaluation of her condition. Discharge Plan Departure Patient Disposition: Admitted as Observation Clinical Impression: 2019 novel coronavirus–infected pneumonia (NCIP)#[id number];infected pneumonia (NCIP) Admit Date/Time: 06/03/20 16:32 Admit Provider: Nancy Almonte
[2020-06-03 14:56] LABS: Neutrophils Absolute Manual 2604 /uL (3000-5900); RBC Morphology Normal Morphology; Total Cells Counted 100
[2020-06-03 14:58] LABS: Procalcitonin < 0.05 ng/mL (<0.5)
[2020-06-03 15:09] LABS: Ferritin 203 ng/mL (11-264)
[2020-06-03 15:50] LABS: Bacteria Urine None Seen; WBC Urine None Seen (0-5/HPF)
[2020-06-03 15:51] LABS: Appearance Urine UA CLEAR; Bilirubin Urine UA NEGATIVE (NEGATIVE); Color Urine UA YELLOW; Glucose Urine UA NEGATIVE (Negative); Ketones Urine UA NEGATIVE (NEGATIVE); Leukocyte Esterase Urine UA NEGATIVE (NEGATIVE); Nitrite Urine UA NEGATIVE (Negative); Occult Blood Urine UA TRACE-INTACT (Negative); Protein Urine UA TRACE (Negative); Urobilinogen Urine UA 0.2 E.U./dL (0.2)
[2020-06-03 16:07] LABS: Amorphous Sediment Urine 1+; Culture Indicated Urine Cult Not Indicated; RBC Urine 0-1/HPF (0-5/HPF)
[2020-06-03] MEDS: HYDRALAZINE 20 MG/ML VIAL 10 MG IV (18:11)
--- NOTE | 2020-06-03 23:43 | P.HP_ITS ---
History of Present Illness History of Present Illness Date Patient Seen: 06/03/20 Time Patient Seen: 23:00 Chief complaint: gen weakness Narrative: Nelsy Law is a 79-year-old female who was previously admitted on May 28 and then left Against Medical Advice on May 29 after having been diagnosed with COVID-19. During her previous stay she was started on Remdesavir REM deserve ear and dexamethasone. She returns today with shortness of breath that she is u nable to tell me much more about. And she also has a complaint of increasing anxiety associated with confusion. It was difficult to have a interview with her because she was unable to wear mask, so I had to interview her by phone from a different room. She does endorse that she has been traveling with her in an RV since the beginning of April and is from [place]. Review of previous admission and progress notes indicate that the patient was COVID-19 positive however she asks me tonight whether her has COVID-19. When asked if she would leave when she was feeling better she stated that she would do so. She states that she does not want to be in the hospital. She states she has been confused and that this is new and is worsened over time, she states that she can not ?makes sense of anything. She does have a headache she denies fever, chest pain, palpitations, productive cough, has had recent diarrhea, and states she is anxious and confused. Chest x-ray was done in the ED however the read isn't available as yet. Her temperature was 98?, blood pressure 153/66, heart rate 71, respiratory rate 16, oxygen saturation 92% on room air, she weighs 50.5 kilos and has a BMI of 20.3. WBC is 4.2, RBC 3.92, hemoglobin 12.7, hematocrit 30.3, platelet count 174, sodium 138, potassium 3.5, chloride 106, CO2 25, creatinine 0.91, BUN 14, EGFR 59.9, glucose 101, lactate is 1.1, C-reactive protein is 4.1, troponin is normal at 0.13, procalcitonin is 0.05, UA was negative for a UTI. COVID-19 on May 27 was positive. Patient History Medical History (Updated 06/04/20 @ 03:34 by JORDON Cody) Atrial flutter (Acute) History of breast cancer (Acute) Hypertension (Acute) Medical history unknown (Acute) Surgical History History of fusion of cervical spine (Acute) History of left mastectomy (Acute) Family & Social History Family History (Updated 06/04/20 @ 03:35 by JORDON Cody) Mother Breast cancer Heart disease Father Heart disease Social History: household members spouse Prior Living Arrangements House Safety & Behavioral: Feels Safe in Current Yes Environment Been Physically Hurt or No Threatened By a Person Suicidal Ideation Description None Suicide Plan Description No Plan Tobacco & Substance use: Smoking Status Never smoker alcohol intake never alcohol intake frequency Substance Use Type does not use Meds Home Medications and Allergies Home Medications Medication Instructions Recorded Confirmed Type Eliquis 5 mg PO DAILY 05/28/20 06/03/20 History amiodarone 200 mg PO DAILY 05/28/20 06/03/20 History anastrozole 1 mg PO DAILY 05/28/20 06/03/20 History escitalopram oxalate 6 mg PO DAILY 05/28/20 06/03/20 History losartan 25 mg PO BEDTIME PRN 05/28/20 06/03/20 History rosuvastatin 40 mg PO DAILY 05/28/20 06/03/20 History topiramate 100 mg PO BID 05/28/20 06/03/20 History gabapentin 600 mg PO BID 06/03/20 06/03/20 History Allergies Allergy/AdvReac Type Severity Reaction Status Date / Time Sulfa (Sulfonamide Allergy Verified 05/27/20 18:36 Antibiotics) Review of Systems Review of Systems ROS: Yes All systems reviewed with the patient and are negative except as otherwise documented Exam Vital Signs (past 8 hours): - 06/03/20 16:00 06/03/20 16:26 06/03/20 16:30 Temperature Pulse Rate 69 80 71 Respiratory Rate Blood Pressure 214/94 H 197/94 H 204/88 H Pulse Oximetry 98 98 97 06/03/20 17:00 06/03/20 17:30 06/03/20 18:00 Temperature Pulse Rate 70 68 66 Respiratory Rate 39 H Blood Pressure 176/76 H 193/77 H 207/91 H Pulse Oximetry 98 97 99 06/03/20 18:11 06/03/20 18:15 06/03/20 18:30 Temperature Pulse Rate 68 65 80 Respiratory Rate 48 H 26 H Blood Pressure 207/91 H 202/93 H 204/92 H Pulse Oximetry 99 99 06/03/20 18:45 06/03/20 20:35 06/03/20 21:38 Temperature 97.7 F Pulse Rate 72 75 Respiratory Rate 17 Blood Pressure 147/65 H 147/65 H 140/71 Pulse Oximetry 97 Oxygen Delivery Method Room Air Narrative Exam Narrative: Full physical exam could not be performed due to COVID-19 isolation requirements. Attempt was made to examine the patient in person. Gen: Alert, oriented, well-developed 79 y.o. female, appears anxious HEENT: normocephalic, atraumatic, conjunctiva clear, sclera non-icteric, oral mucosa pink and moist Neck: supple, full ROM, no JVD Abd: non-distended Skin: normal color, no cyanosis observed Neuro: Admittedly confused, alert and oriented X 3 Psyche: labile but cooperative, Objective Labs Result Diagrams: 06/03/20 13:45 06/03/20 13:45 Labs: Laboratory Results - last 24 hr 06/03/20 06/03/20 06/03/20 13:45 13:45 13:45 WBC 4.2 L RBC 3.92 L Hgb 12.7 Hct 38.3 MCV 97.7 D MCH 32.3 MCHC 33.1 RDW 15.1 H Plt Count 174 Neut % (Auto) Not Reportable Lymph % (Auto) Not Reportable [place] % (Auto) Not Reportable Eos % (Auto) Not Reportable Baso % (Auto) Not Reportable Lymph # (Auto) Not Reportable [place] # (Auto) Not Reportable Baso # (Auto) Not Reportable Total Counted 100 Seg Neutrophils % 62.0 Lymphocytes % (Manual) 26.0 Monocytes % (Manual) 10.0 Eosinophils % (Manual) 1.0 L Basophils % (Manual) 1.0 Neutrophils # (Manual) 2604 L RBC Morphology Normal morphology Sodium 138 Potassium 3.5 Chloride 106 Carbon Dioxide 25 BUN 14 Creatinine 0.91 Estimated GFR 59.9 L BUN/Creatinine Ratio 15.4 Glucose 101 Lactate Calcium 8.4 Ferritin 203 Total Creatine Kinase 53 D CK-MB (CK-2) TNP CK-MB (CK-2) Rel Index TNP Troponin I 0.013 C-Reactive Protein 4.1 H NT-Pro-B Natriuret Pep 446 Procalcitonin < 0.05 Urine Color Urine Appearance Urine pH Ur Specific [place] Urine Protein Urine Glucose (UA) Urine Ketones Urine Occult Blood Urine Nitrate Urine Bilirubin Urine Urobilinogen Ur Leukocyte Esterase Urine RBC Urine WBC Amorphous Sediment Urine Bacteria Ur Culture Indicated? 06/03/20 06/03/20 13:45 15:25 WBC RBC Hgb Hct MCV MCH MCHC RDW Plt Count Neut % (Auto) Lymph % (Auto) [place] % (Auto) Eos % (Auto) Baso % (Auto) Lymph # (Auto) [place] # (Auto) Baso # (Auto) Total Counted Seg Neutrophils % Lymphocytes % (Manual) Monocytes % (Manual) Eosinophils % (Manual) Basophils % (Manual) Neutrophils # (Manual) RBC Morphology Sodium Potassium Chloride Carbon Dioxide BUN Creatinine Estimated GFR BUN/Creatinine Ratio Glucose Lactate 1.1 Calcium Ferritin Total Creatine Kinase CK-MB (CK-2) CK-MB (CK-2) Rel Index Troponin I C-Reactive Protein NT-Pro-B Natriuret Pep Procalcitonin Urine Color Yellow Urine Appearance Clear Urine pH 8.0 Ur Specific [place] 1.010 Urine Protein Trace H Urine Glucose (UA) Negative Urine Ketones Negative Urine Occult Blood Trace-intact Urine Nitrate Negative Urine Bilirubin Negative Urine Urobilinogen 0.2 Ur Leukocyte Esterase Negative Urine RBC 0-1/hpf Urine WBC None seen Amorphous Sediment 1+ Urine Bacteria None seen Ur Culture Indicated? Cult not indicated Assessment & Plan Assessment & Plan narrative: Nelsy Law will be admitted as an inpatient for further management and supportive treatment of COVID-19. Left upper lobe pneumonia, Covid 19 positive, present on admission, active -patient with known COVID-19 exposure within the last week, rapid COVID-19 testing was positive as of 05/27. -patient had been maintaining adequate saturation at 94-95% without supplemental oxygen. With coughing she drops into the high 80s. -COVID-GRAM Critical Illness Risk Score places the patient at high risk related to age, cardiac disease, history of cancer, elevated liver functions, elevated LDH, and ALT and renal failure. -current guidelines recommend: -limiting fluid to limit pulmonary injury. -She received 2 days of Remdesivir. -She received 2 doses Decadron 6 mg daily -consult respiratory therapy to evaluate and treat. -albuterol MDI every 4 hours as needed. -Complaint of diarrhea likely a Covid symptom Metabolic encephalopathy secondary to pneumonia above, present on admission, active -the patient admits to increasing confusion that has not abated since discharge -no other apparent etiology is found for confusional state -head CT during previous admission found no acute pathology but notes cerebral volume loss for age and periventricular deep white matter chronic ischemic small-vessel disease. -patient remains redirectable and cooperative, behaviorally stable. She becomes quite emotional when reminded that she cannot have visitors and her will not be able to see her while in patient. -Likely a constilation of unusual symptoms associated with mild COVID-19 patients -Social work consult ordered to determine safe discharge planning. Atrial flutter, unknown duration or chronicity, present on admission, active. -telemetry -the patient cannot relate any history of atrial flutter but does relate a history of cardiac disease. -patient has been anticoagulated on Eliquis however doses unknown. -patient is hemodynamically stable. Patient is observation status as her stay is not likely to exceed 2 midnights Isolation: Droplet, COVID-19 positive. VTE prophylaxis: Bilateral SCDs, anticoagulated on Eliquis FEN: Saline lock, Diet: low sodium diet, BMP in the am DISPO: Unknown at this time, requesting assistance with this. Code status: Due to patient's impaired cognition she will be FULL CODE until such time further status could be clarified. COVID-19 COVID-19 status: Positive Result date/Date tested (Pos, Neg/Pending): 05/27/20 Quality VTE Deep Vein Thrombosis/Pulmonary Embolism Present on Admission: No
[2020-06-04 00:05] VITALS: BP 153/66; PULSE 71; RESP 16; TEMP 36.6; O2SAT 92
[2020-06-04] MEDS: ACETAMINOPHEN 325 MG TABLET 650 MG PO (01:10)
[2020-06-04] MEDS: TOPIRAMATE 25 MG TABLET 100 MG PO (01:56)
--- NOTE | 2020-06-04 03:43 | PC.NURSE ---
SCD's not applied due to pt's impulsivity and increase risk of falling
[2020-06-04 04:20] VITALS: BP 174/79; PULSE 79; RESP 20; TEMP 36.5; O2SAT 97
[2020-06-04 05:35] VITALS: BP 146/68
[2020-06-04 05:47] LABS: Add Manual Diff / Slide Review NO; Basophils Absolute Auto 0 /uL (0-100); Basophils Percent Auto 0.6 % (0-2); Eosinophils Absolute Auto 0 /uL (0-450); Eosinophils Percent Auto 0.6 % (2-4); Hemoglobin 11.1 g/dL (12.0-16.0); Lymphocytes Absolute Auto 1000 /uL (1100-4500); Lymphocytes Percent Auto 20.1 % (25-40); Mean Corpuscular HGB Conc 33.7 % (30-36); Mean Corpuscular Hemoglobin 32.2 PG (26-34); Mean Corpuscular Volume 95.7 fL (80-100); Monocytes Absolute Auto 500 /uL (0-900); Monocytes Percent Auto 11.3 % (3-14); Neutrophils Absolute Auto 3200 /uL (1500-7000); Neutrophils Percent Auto 67.4 % (50-75); Platelet Count 146 X10^3/uL (150-400); Red Blood Cell Count 3.44 X10^6/uL (4.0-5.2); White Blood Cell Count 4.8 X10^3/uL (4.5-11.0)
--- NOTE | 2020-06-04 05:52 | PC.NURSE ---
Pt very impulsive. Needs frequent reminders to use call light.
[2020-06-04 05:54] LABS: BUN Creatinine Ratio 13.8 (6-22); Blood Urea Nitrogen 12 mg/dL (7-17); Calcium 8.1 mg/dL (8.4-10.2); Carbon Dioxide 27 mmol/L (22-32); Chloride 109 mmol/L (98-107); Estimated Glomerular Filt Rate > 60.0 mL/min (>60); Glucose 100 mg/dL (80-110); HEMOLYSIS < 15 (0-50); Magnesium 1.9 mg/dL (1.6-2.3); Potassium 3.6 mmol/L (3.4-5.1); Sodium 139 mmol/L (137-145)
[2020-06-04 08:30] VITALS: BP 144/72; PULSE 56; RESP 18; TEMP 36.6
[2020-06-04] MEDS: ROSUVASTATIN 10 MG TABLET 40 MG PO (11:18)
[2020-06-04] MEDS: AMIODARONE 200 MG TABLET PO (11:18)
[2020-06-04] MEDS: APIXABAN 5 MG TABLET PO ×2 (11:18→21:26)
[2020-06-04] MEDS: ESCITALOPRAM 10 MG TABLET PO (11:18)
[2020-06-04] MEDS: TOPIRAMATE 100 MG TABLET PO ×2 (11:18→21:26)
[2020-06-04] MEDS: SODIUM CHLORIDE 0.9% FLUSH 10 ML IV ×2 (11:19→20:43)
[2020-06-04 11:35] VITALS: BP 157/73; PULSE 72; RESP 18; TEMP 36.6; O2SAT 99
--- NOTE | 2020-06-04 15:27 | PC.NURSE ---
Day Shift- Pt moved from room 219 to 206. Pt COVID-19 positive previously, in Isolation precautions. Pt denies any chest pain, chest pressure, shortness of breath, body aches. States feeling tired and wants to go home. Assisted pt calling her Mikel from her cell. Her cell was on her bedside table at that time. Pt able to state her name, birthday, [facility]. When asked the current day, month, and year, 3 times, pt did not know. Pt cooperative, impulsive at times per last shift, flat affect, repeats stating shes tired and wants to go home. Bed alarm and chair alarm placed on pt as her room door needs to be closed at all times due to isolation precautions. Re-oriented to call light.
--- NOTE | 2020-06-04 17:34 | P.PN_ITS ---
Subjective Subjective Date Patient Seen: 06/04/20 Interval history: The patient is a 79-year-old female who was admitted to the hospital with COVID-19. Patient was discharged on May 28. She re-presented to the hospital for confusion and worsening symptoms however the patient is no longer hypoxic. She received 2 doses of Remdesivir and Decadron. Patient denies any shortness of breath, chest pain, or confusion. She apparently was confused earlier today. However this time she know she is at [facility], the years 2019, the month this May, and the president is Lucille. The patient is willing to stay but is anxious to return home. She lives in an with her and they are traveling from [place] with plans to return back to [place]. Exam Vital Signs (past 8 hours): - 06/04/20 11:35 Temperature 97.8 F Pulse Rate 72 Respiratory Rate 18 Blood Pressure 157/73 H Pulse Oximetry 99 Oxygen Delivery Method Room Air Oxygen Flow Rate 0 Narrative Exam Narrative: Pleasant elderly female lying in bed in no obvious distress Lungs: Clear to auscultation Cardiac exam: Regular rate and rhythm normal S1-S2 Abdomen: Soft nontender nondistended Extremities: No edema Objective Labs Result Diagrams: 06/04/20 05:20 06/04/20 05:20 Labs: Laboratory Results - last 24 hr 06/04/20 06/04/20 05:20 05:20 WBC 4.8 RBC 3.44 L Hgb 11.1 L Hct 33.0 L MCV 95.7 MCH 32.2 MCHC 33.7 RDW 15.0 H Plt Count 146 L Neut % (Auto) 67.4 Lymph % (Auto) 20.1 L [place] % (Auto) 11.3 Eos % (Auto) 0.6 L Baso % (Auto) 0.6 Neut # (Auto) 3200 Lymph # (Auto) 1000 L [place] # (Auto) 500 Eos # (Auto) 0 Baso # (Auto) 0 Sodium 139 Potassium 3.6 Chloride 109 H Carbon Dioxide 27 BUN 12 Creatinine 0.87 Estimated GFR > 60.0 BUN/Creatinine Ratio 13.8 Glucose 100 Calcium 8.1 L Magnesium 1.9 Assessment & Plan Assessment & Plan narrative: Left upper lobe pneumonia, Covid 19 positive, present on admission, active -patient with known COVID-19 exposure within the last week, rapid COVID-19 testing was positive as of 05/27. -patient had been maintaining adequate saturation at 94-95% without supplemental oxygen. With coughing she drops into the high 80s. -COVID-GRAM Critical Illness Risk Score places the patient at high risk related to age, cardiac disease, history of cancer, elevated liver functions, elevated LDH, and ALT and renal failure. -current guidelines recommend: -limiting fluid to limit pulmonary injury. -She received 2 days of Remdesivir. -She received 2 doses Decadron 6 mg daily -consult respiratory therapy to evaluate and treat. -albuterol MDI every 4 hours as needed. -Complaint of diarrhea likely a Covid symptom -will defer resuming REM does severe at this time, no Decadron, patient is clinically improving and likely will be able to discharge tomorrow. Metabolic encephalopathy secondary to pneumonia above, present on admission, active -the patient admits to increasing confusion that has not abated since discharge -no other apparent etiology is found for confusional state -head CT during previous admission found no acute pathology but notes cerebral volume loss for age and periventricular deep white matter chronic ischemic small-vessel disease. -patient remains redirectable and cooperative, behaviorally stable. She becomes quite emotional when reminded that she cannot have visitors and her will not be able to see her while in patient. -Likely a constilation of unusual symptoms associated with mild COVID-19 patients -Social work consult ordered to determine safe discharge planning. -question baseline dementia, verses acute encephalopathy, overall patient appears to be improved Atrial flutter, unknown duration or chronicity, present on admission, active. -telemetry -the patient cannot relate any history of atrial flutter but does relate a history of cardiac disease. -patient has been anticoagulated on Eliquis however doses unknown. -patient is hemodynamically stable. -continue current rate Patient is observation status as her stay is not likely to exceed 2 midnights Isolation: Droplet, COVID-19 positive. Quality VTE Deep Vein Thrombosis/Pulmonary Embolism Present on Admission: No
[2020-06-04 20:25] VITALS: BP 146/73; PULSE 72; RESP 18; TEMP 36.6; O2SAT 98
[2020-06-05 03:14] VITALS: BP 153/51; PULSE 75; RESP 19; TEMP 36.3; O2SAT 95
[2020-06-05] MEDS: ESCITALOPRAM 10 MG TABLET PO (08:46)
[2020-06-05] MEDS: TOPIRAMATE 100 MG TABLET PO ×2 (08:46→20:25)
[2020-06-05] MEDS: AMIODARONE 200 MG TABLET PO (08:46)
[2020-06-05] MEDS: APIXABAN 5 MG TABLET PO ×2 (08:46→20:25)
[2020-06-05] MEDS: ROSUVASTATIN 10 MG TABLET 40 MG PO (08:47)
[2020-06-05] MEDS: SODIUM CHLORIDE 0.9% FLUSH 10 ML IV ×2 (08:47→20:25)
[2020-06-05 09:00] VITALS: BP 146/76; PULSE 72; RESP 14; TEMP 36.4; O2SAT 94
--- NOTE | 2020-06-05 10:54 | P.DS_ITS ---
History of Present Illness History of Present Illness Date Patient Seen: 06/05/20 Chief complaint: gen weakness Narrative: Nelsy Law is a 79-year-old female who was previously admitted on May 28 and then left Against Medical Advice on May 29 after having been diagnosed with COVID-19. During her previous stay she was started on Remdesavir REM deserve ear and dexamethasone. She returns today with shortness of breath that she is unable to tell me much more about. And she also has a complaint of increasing anxiety associated with confusion. It was difficult to have a interview with her because she was unable to wear mask, so I had to interview her by phone from a different room. She does endorse that she has been traveling with her in an RV since the beginning of April and is from [place]. Review of previous admission and progress notes indicate that the patient was COVID-19 positive however she asks me tonight whether her has COVID-19. When asked if she would leave when she was feeling better she stated that she would do so. She states that she does not want to be in the hospital. She states she has been confused and that this is new and is worsened over time, she states that she can not ?makes sense of anything. She does have a headache she denies fever, chest pain, palpitations, productive cough, has had recent diarrhea, and states she is anxious and confused. Chest x-ray was done in the ED however the read isn't available as yet. Her t emperature was 98?, blood pressure 153/66, heart rate 71, respiratory rate 16, oxygen saturation 92% on room air, she weighs 50.5 kilos and has a BMI of 20.3. WBC is 4.2, RBC 3.92, hemoglobin 12.7, hematocrit 30.3, platelet count 174, sodium 138, potassium 3.5, chloride 106, CO2 25, creatinine 0.91, BUN 14, EGFR 59.9, glucose 101, lactate is 1.1, C-reactive protein is 4.1, troponin is normal at 0.13, procalcitonin is 0.05, UA was negative for a UTI. COVID-19 on May 27 was positive. 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 COVID-19 pneumonia 2. Metabolic encephalopathy with probable dementia 3. Atrial flutter 4. History of breast cancer 5. Hyperlipidemia 6. Hypertension Hospital Course: Patient was admitted to the hospital for weakness decreased appetite in the setting of COVID-19 pneumonia. She was placed on IV fluids, diet was adjusted, and she improved significantly. The patient was not hypoxic during her hospital stay. She was able to ambulate independently. She had no further cough or fever during her stay. Within 24 hours of admission patient was feeling significantly improved. As she had no further fever cough shortness of breath or hypoxia and had improvement in her original symptoms she was deemed appropriate for discharge home. The patient is living in an RV with her as her traveling from [place]. She indicates they will return to [place] as soon as she is discharged from the hospital. She has had some confusion intermittently during the hospital stay. She does note that she is at [facility], the years 2019, the month is May, and that the president is Lucille. She does however ask give her 's in the hospital. She needs to be reoriented that he is not hospitalized but in their RV. She was able to eat her breakfast. She has had no nausea. No diarrhea. She is deemed appropriate for discharge home. Exam Vital Signs (past 8 hours): - 06/05/20 03:14 06/05/20 09:00 Temperature 97.3 F L 97.6 F Pulse Rate 75 72 Respiratory Rate 19 14 Blood Pressure 153/51 H 146/76 H Pulse Oximetry 95 94 Oxygen Delivery Method Room Air Oxygen Flow Rate 0 Narrative Exam Narrative: Pleasant elderly female in no acute distress Lungs decreased breath sounds on the left side normal breath sounds on the right Cardiac exam: Regular rate and rhythm normal S1-S2 Abdomen: Soft nontender nondistended Extremities: No edema Objective Labs Result Diagrams: 06/04/20 05:20 06/04/20 05:20 Discharge Plan Discharge Plan Patient Disposition: Home Discharge orders & Medications Prescriptions: Continued anastrozole 1 mg Tablet 1 mg PO DAILY RF: 0 amiodarone 200 mg Tablet 200 mg PO DAILY RF: 0 losartan 25 mg tablet 25 mg PO BEDTIME PRN (Reason: Blood Pressure) RF: 0 topiramate 100 mg tablet 100 mg PO BID RF: 0 escitalopram oxalate 10 mg tablet 6 mg PO DAILY RF: 0 rosuvastatin 40 mg tablet 40 mg PO DAILY RF: 0 Eliquis 5 mg tablet 5 mg PO DAILY RF: 0 gabapentin 600 mg Tablet 600 mg PO BID RF: 0 Discharge Health Status Multidrug resistant organism: Other Diet/Activity/Treatments Activity: as tolerated, need quarantine for 14 days, COVID-19 positive Other treatments: f/u with PCP, Dr. Montero upon return to [facility] VTE Deep Vein Thrombosis/Pulmonary Embolism Present on Admission: No
--- NOTE | 2020-06-05 12:59 | CM.DANOTE ---
Per MD, pt medically stabilizing and no longer having SOB or respiratory issues and per RN pt is ambulating well without assist. RN was assisting pt with showering and pt still on airborne precautions for previous COVID 19 positive test on 05/27/20. called pt's spouse Mikel and he confirms that they are here locally from [place] about 2 weeks ago in their RV and both pt and spouse are positive for COVID 19 and showing symptoms of fatigue, weakness, initially SOB but resolved now. Mikel is concerned that pt will again d/c back to their RV and return to not eating enough and being weak and lethargic and spouse is still quite weak himself and fears he will not be able to adequately take care of the pt. discussed SNF with spouse and he would be agreeable but states pt will refuse as pt just wants to be home in the RV and head back to [place] soon. Spouse currently has not had the energy to drive and requests pt at least stay tonight prior to d/c to allow time for both of them to stabilize more. plans to meet bedside with pt today to further discuss SNF and confirm that she is not agreeable to SNF. signed F2F for HH and states she will be the following MD after d/c for HH either until pt establishes with PCP here or they return to [place] in the next couple weeks. WILLEM called pt's spouse Mikel and confirmed above and discussed HH services and frequency and he is agreeable and no preference. Mikel states they are staying at the [facility] just by [place] and that they have vacationed in their RV there for many years but have not been the past couple years due to health issues. Mikel confirms they are not established with any clinics or PCP here locally in [facility] but would be agreeable if needed for HH and they have reserved reservations at the [facility] until the end of June. WILLEM called Camille at [facility] based on Vendor Calendar and discussed above and they can review pt and accept with Dr. Desouza as the MD following after d/c and aware that pt will be in an park [facility]. [facility] has an opening Sunday morning and will put pt on their intake schedule for Sunday. WILLEM faxed the clinicals, signed F2F, and MD orders to [facility] to review and d/c summ will need to be faxed at discharge. Plan: SW to follow for confirmation from MD that pt not interested in SNF at d/c and to fax the d/c summary to [facility] at discharge. 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 No Advance Directives on File No History Provided By Patient,Significant Other, Medical Record Has Patient been admitted in last 30 Yes days? Comment Readmit from discharge home 05/29/20 after testing positive for COVID 19 Prior Living Arrangements House Household Members spouse Type of transporation used prior to Drives own vehicle admit Independent with ADL's Yes Is patient alert and oriented? Yes Caregiver for Another No Patient/Family Preference Home with Home Health Barriers to Discharge Yes Comment Here vacationing from [place] and not established with PCP locally, staying in an RV Discharge Plan Home with Home Health Transportation Arrangement spouse available to provide transport at d/c. Referrals Initiated Home Health If patient plan is home with home health Yes : Has signed face to face form been completed? Medicare Choice List Provided Yes SNF/HH Preference [facility] based on Vendor Calendar Contact Name/Phone MACARIO Obrien Review Status In Process Please Provide Date Initial DC 06/05/20 Assessment Was Performed Next Review Type Continued Stay Review
--- NOTE | 2020-06-05 14:08 | PM.PN.1 ---
Subjective Subjective Date Patient Seen: 06/05/20 Interval history: Patient reports she feels significantly improved today. She denies any shortness of breath or cough. She has no nausea vomiting or diarrhea. She has tolerated her diet well. She is ambulating independently. I did discuss discharge with the patient today. She is eager to return home. Discussed this with her who was at home recovering from coded 19 as well. He indicates that when she is home she is in bed and does not eat or get up. She became quite weekend and required readmission after her last visit May 29. They are living in an with plans to return to [place] once her is health has returned normal 0. He felt he was unable to care for her at this time. Patient has no specific complaints. She does not appear to be confused today. She is anxious to be discharged Exam Vital Signs (past 8 hours): - 06/05/20 09:00 Temperature 97.6 F Pulse Rate 72 Respiratory Rate 14 Blood Pressure 146/76 H Pulse Oximetry 94 Oxygen Delivery Method Room Air Oxygen Flow Rate 0 Narrative Exam Narrative: Elderly female in no obvious distress Lungs: Clear to auscultation Cardiac exam: Regular rate and rhythm normal S1-S2 Abdomen: Soft nontender nondistended Extremities: No edema Objective Labs Result Diagrams: 06/04/20 05:20 06/04/20 05:20 Assessment & Plan Assessment & Plan narrative: Impression 1. COVID-19 pneumonia -patient is recovering nicely, she has no hypoxia no fever, no cough. -she is no longer on remdesivir or Decadron -there is no evidence of bacterial superinfection 2. Acute encephalopathy -likely related to underlying covered pneumonia -slowly improved 3. Probable early dementia -this will require workup once she returns to [place] 4. Hypertension -continue losartan 5. Atrial fibrillation -continue amiodarone, and Eliquis 6. Hyperlipidemia -continue statin 7. History of breast cancer -continue anastrozole Plan given concerns regarding the patient's functional status upon returning to the will arrange for visiting nurse, physical therapy for at discharge tomorrow. Will discuss with the patient alternatively she could be eligible for shelter. However we believe the patient would not likely be interested but if she is unable to manage at home that may be the only alternative. COVID-19 COVID-19 status: Positive Quality VTE Deep Vein Thrombosis/Pulmonary Embolism Present on Admission: No
[2020-06-05] MEDS: ACETAMINOPHEN 325 MG TABLET 650 MG PO ×2 (15:23→22:18)
[2020-06-05 15:30] VITALS: BP 180/82; PULSE 78; RESP 16; TEMP 36.8; O2SAT 96
--- NOTE | 2020-06-05 18:18 | PC.NURSE ---
1644- This PHOTOGRAPHER STILL went into pt's room to check on her. Pt appeared sad and when I asked how she was, she said, I feel so isolated. This PHOTOGRAPHER STILL sat with her through dinner. Pt also said, I'm crying all the time, and I'm so blue. Notified RN. Also, asked if pt would like to talk with Mikel which she said yes. Mikel was called and patched into pts room.
[2020-06-05 20:20] VITALS: BP 140/74; PULSE 72
[2020-06-05] MEDS: LOSARTAN 25 MG TABLET PO (20:25)
[2020-06-06 01:20] VITALS: BP 143/73; PULSE 67; RESP 18; TEMP 36.3; O2SAT 96
[2020-06-06] MEDS: ROSUVASTATIN 10 MG TABLET 40 MG PO (08:19)
[2020-06-06] MEDS: APIXABAN 5 MG TABLET PO (08:19)
[2020-06-06] MEDS: ESCITALOPRAM 10 MG TABLET PO (08:20)
[2020-06-06] MEDS: TOPIRAMATE 100 MG TABLET PO (08:20)
[2020-06-06] MEDS: AMIODARONE 200 MG TABLET PO (08:20)
[2020-06-06] MEDS: SODIUM CHLORIDE 0.9% FLUSH 10 ML IV (08:20)
[2020-06-06 08:33] VITALS: BP 156/67; PULSE 71; RESP 18; TEMP 36.7; O2SAT 98
--- NOTE | 2020-06-06 10:53 | PC.NURSE ---
Patient is going to discharge home today. She has clear lung sounds, is on RA and denies pain. Her will pick her up in front of the hospital and staff will wheel her down in a chair.
== END 2020-06-06 11:30 | disposition home health service (06) | DRG 177 ==
LOC: ED 16:31 → AC 16:33
PROVIDERS: Nurse Practitioner Family; Admitting Provider Internal Medicine; Emergency Provider Emergency Medicine; Referring Provider Emergency Medicine; Visit Provider Internal Medicine
DX: U07.1 COVID-19 (principal); J12.89 Other viral pneumonia; G93.41 Metabolic encephalopathy; I48.92 Unspecified atrial flutter; I10 Essential (primary) hypertension; F03.90 Unspecified dementia, unspecified severity, without behavioral disturbance, psychotic disturbance, mood disturbance, and anxiety; E78.5 Hyperlipidemia, unspecified; Z79.01 Long term (current) use of anticoagulants; Z85.3 Personal history of malignant neoplasm of breast
CPT/HCPCS: 36415; 71045; 80048; 81001; 82550; 82728; 83605; 83735; 83880; 84145; 84484; 85025; 86140; 87040; 96361; 96374; 99284; G0378; J0360